=== PATIENT | female | born 1970 | race Caucasian/White ===

== ENCOUNTER → 2023-11-18 16:56 | Outpatient (REF) | payer BC, SELFPAY | LOC: HWRAD 16:56 | PROVIDERS: ATTENDING PHYSICIAN Nurse Practitioner Family | DX: J06.9 Acute upper respiratory infection, unspecified (principal) | CPT/HCPCS: 71046 ==

== ENCOUNTER → 2024-02-07 15:40 | Outpatient (REF) | payer BC, SELFPAY | LOC: HWRCS 15:40 | PROVIDERS: ATTENDING PHYSICIAN Nurse Practitioner; FAMILY PHYSICIAN Internal Medicine | DX: I47.10 Supraventricular tachycardia, unspecified (principal); R00.2 Palpitations; I34.1 Nonrheumatic mitral (valve) prolapse | CPT/HCPCS: 93306 ==

== ENCOUNTER → 2024-09-28 16:18 | Outpatient (REF) | payer BC, SELFPAY | LOC: HWWDC 16:18 | PROVIDERS: ATTENDING PHYSICIAN Internal Medicine | DX: Z12.31 Encounter for screening mammogram for malignant neoplasm of breast (principal) | CPT/HCPCS: 77063; 77067 ==

== ENCOUNTER → 2024-10-07 09:39 | Outpatient (REF) | payer BC, SELFPAY | LOC: WDC 09:39 | PROVIDERS: ATTENDING PHYSICIAN Internal Medicine | DX: R92.8 Other abnormal and inconclusive findings on diagnostic imaging of breast (principal) | CPT/HCPCS: 76642 ==

== ENCOUNTER → 2024-11-24 08:50 | Outpatient (REF) | payer BC, SELFPAY | LOC: WDC 08:50 | PROVIDERS: ATTENDING PHYSICIAN Internal Medicine | DX: R92.2 Inconclusive mammogram (principal) | CPT/HCPCS: 76641 ==

== ENCOUNTER → 2025-03-10 08:09 | Outpatient (REF) | payer BC, SELFPAY | LOC: RCS 08:09 | PROVIDERS: ATTENDING PHYSICIAN Internal Medicine Cardiovascular Disease; FAMILY PHYSICIAN Internal Medicine | DX: I47.10 Supraventricular tachycardia, unspecified (principal); R00.2 Palpitations; I34.1 Nonrheumatic mitral (valve) prolapse | CPT/HCPCS: 93306 ==

== ENCOUNTER → 2025-04-19 08:14 | Outpatient (REF) | payer BC, SELFPAY | LOC: RCS 08:14 | PROVIDERS: ATTENDING PHYSICIAN Internal Medicine Cardiovascular Disease; FAMILY PHYSICIAN Internal Medicine | DX: I34.1 Nonrheumatic mitral (valve) prolapse (principal); I34.0 Nonrheumatic mitral (valve) insufficiency | CPT/HCPCS: 93017; 93350 ==

== ENCOUNTER 2025-05-10 06:51 | Day surgery (SDC) | payer BC, SELFPAY ==
[2025-05-10 09:14] LABS: Hematocrit 31.5 % (37.0-47.0); Hemoglobin 10.5 g/dL (12.0-16.0); Mean Corp Hgb Conc. 33.3 g/dL (33.0-37.0); Mean Corpuscular Volume 81.2 fL (81.0-99.0); Nucleated Red Blood Cells % 0 %; Platelet Count 226 10^3/uL (130-400); Red Cell Dist. Width 15.0 % (11.5-14.5)
[2025-05-10 09:35] LABS: Albumin 3.6 g/dl (3.5-5.0); Blood Urea Nitrogen 16 mg/dl (7-17); Calcium 8.9 mg/dl (8.4-10.2); Carbon Dioxide 27 mmol/L (22-30); Chloride 110 mmol/L (98-107); Glucose 85 mg/dl (70-99); Potassium 4.4 mmol/L (3.5-5.1); Sodium 140 mmol/L (135-145); eGFR > 60.00
== END 2025-05-10 09:21 | disposition home or self-care (01) ==
LOC: CATH 06:51
PROVIDERS: ATTENDING PHYSICIAN Internal Medicine Cardiovascular Disease; FAMILY PHYSICIAN Internal Medicine
DX: I08.1 Rheumatic disorders of both mitral and tricuspid valves (principal); I47.10 Supraventricular tachycardia, unspecified; R00.2 Palpitations; R53.83 Other fatigue; E78.5 Hyperlipidemia, unspecified; Z87.891 Personal history of nicotine dependence; Z79.85 Long-term (current) use of injectable non-insulin antidiabetic drugs
CPT/HCPCS: 93312; 93320; 93325; 80069; 85025; 93005

== ENCOUNTER → 2025-05-14 07:52 | Outpatient (REF) | payer BC, SELFPAY | LOC: WDC 07:52 | PROVIDERS: ATTENDING PHYSICIAN Internal Medicine | DX: R92.8 Other abnormal and inconclusive findings on diagnostic imaging of breast (principal) | CPT/HCPCS: 76642 ==

== ENCOUNTER 2025-05-28 06:19 | Day surgery (SDC) | payer BC, SELFPAY ==
[2025-05-28] VITALS (14 sets, daily range): BP systolic 91–116; BP diastolic 48–65; BMI 25.0
--- NOTE | 2025-05-28 09:04 | ITS.CL.PN ---
Financial Services Assistant - Procedure Note
Procedure
Procedure Note:
CARDIAC CATHETERIZATION REPORT
Date of Procedure: 05/28/2025
Referring: Dr. Carmelo Sanchez MD
Indication: preoperative assessment prior to planned mitral valve surgery
PROCEDURE(S)
1. left heart catheterization
2. coronary angiography
ACCESS: 5F right radial artery (closure: radial band)
CATHETERS
1. 5F JR4
2. 5F JL3.5
MODERATE SEDATION: 25 minutes of moderate sedation was utilized. An independent veterinary medical officer was present to assist with and help manage the patient's level of consciousness and physiologic status.
HEMODYNAMIC DATA
LV 94/7 (EDP 16) mmHg
AO 96/65 (mean 76) mmHg
CORONARY ANGIOGRAPHY
Dominance: Right
LM: Large, normal
LAD: Large vessel giving rise to a moderate caliber D1/ramus and moderate caliber D2 before wrapping around the apex. There is no coronary artery disease.
LCx: Large vessel giving rise to a small OM1 and large branching OM2. There is no coronary artery disease.
RCA: Large vessel with an anterior takeoff giving rise to a moderate caliber RPDA. There is no coronary artery disease.
RADIATION: dose 99.9 mGy; DAP 7.83 Gy*cm2; fluoroscopy time 3.5 min
CONCLUSIONS
1. Mildly elevated LV filling pressure
2. No coronary artery disease
RECOMMENDATIONS
1. Primary prevention of CAD
2. Proceed with planned mitral valve surgery
Copy to: Dr. Carmelo Sanchez MD
Signed: Reji Nazario MD, PhD
== END 2025-05-28 11:30 | disposition home or self-care (01) ==
LOC: CATH 06:19
PROVIDERS: ATTENDING PHYSICIAN Student in an Organized Health Care Education/Training Program; FAMILY PHYSICIAN Internal Medicine; OTHER PHYSICIAN Internal Medicine Cardiovascular Disease
DX: I34.0 Nonrheumatic mitral (valve) insufficiency (principal); I34.1 Nonrheumatic mitral (valve) prolapse; Z01.818 Encounter for other preprocedural examination; Z79.85 Long-term (current) use of injectable non-insulin antidiabetic drugs; Z79.899 Other long term (current) drug therapy
CPT/HCPCS: 99152; 99153; 93458; C1894; Q9967

== ENCOUNTER → 2025-06-14 06:56 | Outpatient (REF) | payer BC, SELFPAY | LOC: RAD 06:56 | PROVIDERS: ATTENDING PHYSICIAN Thoracic Surgery (Cardiothoracic Vascular Surgery); FAMILY PHYSICIAN Internal Medicine | DX: I34.0 Nonrheumatic mitral (valve) insufficiency (principal) | CPT/HCPCS: 71275; 74174; Q9967 ==

== ENCOUNTER → 2025-06-24 17:15 | Outpatient (REF) | payer BC, SELFPAY | LOC: RAD 17:15 | PROVIDERS: ATTENDING PHYSICIAN Internal Medicine | DX: N28.1 Cyst of kidney, acquired (principal) | CPT/HCPCS: 76775 ==

== ENCOUNTER → 2025-08-03 08:22 | Outpatient (REF) | payer BC, SELFPAY | LOC: RCS 08:22 | PROVIDERS: ATTENDING PHYSICIAN Thoracic Surgery (Cardiothoracic Vascular Surgery); FAMILY PHYSICIAN Internal Medicine | DX: I34.0 Nonrheumatic mitral (valve) insufficiency (principal) | CPT/HCPCS: 93306 ==

== ENCOUNTER 2025-08-31 04:53 | Inpatient (IN) | payer BC, SELFPAY ==
[2025-08-17 08:32] VITALS: BMI 25.7
[2025-08-17 09:23] LABS: Hematocrit 37.6 % (37.0-47.0); Hemoglobin 12.6 g/dL (12.0-16.0); Mean Corp Hgb Conc. 33.5 g/dL (33.0-37.0); Mean Corpuscular Volume 81.2 fL (81.0-99.0); Nucleated Red Blood Cells % 0 %; Platelet Count 267 10^3/uL (130-400); Red Cell Dist. Width 15.0 % (11.5-14.5)
[2025-08-17 09:36] LABS: INR 1.03; PT 13.8 Sec (11.4-14.6)
[2025-08-17 09:50] LABS: ALT (SGPT) 35 U/L (0-35); AST (SGOT) 33 U/L (14-36); Albumin 4.3 g/dl (3.5-5.0); Alkaline Phosphatase 51 U/L (38-126); Blood Urea Nitrogen 17 mg/dl (7-17); Calcium 9.2 mg/dl (8.4-10.2); Carbon Dioxide 28 mmol/L (22-30); Chloride 105 mmol/L (98-107); Estimated Creatinine Clearance 58 ml/min; Glucose 85 mg/dl (70-99); Potassium 4.5 mmol/L (3.5-5.1); Sodium 137 mmol/L (135-145); Total Protein 6.8 g/dl (6.3-8.2); eGFR > 60.00
[2025-08-17 10:01] LABS: Urine Character Clear (Clear)
--- NOTE | 2025-08-17 10:13 | CM ---
Met with and Mrs. Henson in [facility]. She states prior to admission she resides with her spouse in a two story home with four steps to enter. She states she has a full flight of steps to get to bedroom/full bathroom. She states she has a powder
room on the first floor. She states prior to admission she was independent with ambulation and adls. She states she does not have any DME in the home. She states she has a prescription plan. Her spouse states he will be home to assist in her care
if needed. The discharge plan is to return home with his spouse and a home visit by the Transitional Care Nurse when medically stable.
We reviewed pre-op and post-op routines. We reviewed the shower instructions. She has the soap and written instructions. She already has the Cardiothoracic Surgery Educational Booklet. We also reviewed restrictions including driving and lifting
restrictions. We discussed a home visit by the Transitional Care Nurse. She is agreeable to a home visit. The plan is to for Mitral Valve Repair on Sunday, August 31, 2025.
[2025-08-17 10:44] LABS: Urine Red Blood Cell 0-2 /HPF (0-2); Urine Squamous Cell 0-2 /LPF (Few); Urine White Cell 0-2 /HPF (0-5)
[2025-08-17 11:02] LABS: Glycohemoglobin (HgbA1c) 4.8 % (4.0-5.9)
[2025-08-31 05:00] VITALS: BP 109/61
[2025-08-31 05:01] VITALS: BP 107/59
[2025-08-31 05:03] VITALS: BMI 24.9
[2025-08-31] MEDS: LOPRESSOR 25 MG PO (05:10)
[2025-08-31] MEDS: MAGNESIUM OXIDE 400 MG PO (05:10)
[2025-08-31] MEDS: PROTONIX 40 MG PO (05:10)
[2025-08-31] MEDS: BACTROBAN 2% OINTMENT 1 APPLIC NASAL ×2 (05:10→19:42)
--- NOTE | 2025-08-31 05:30 | PTCARENOTE ---
pt admitted into room 2265. VS and weight obtained. pt confirms 2 showers @ home and NPO since midnight. admission questions and med rec completed. clip prep and CHG cloth bath done. pre-op meds given.
--- NOTE | 2025-08-31 06:26 | W.CVOR.SURPR ---
CVOR Surgeon Immed Pre Op
-
I have examined this patient prior to performance of the scheduled procedure.
The patient's condition is unchanged from the time of the dictated/written History and
Physical and the patient is able to undergo the scheduled procedure.
MVrepair +/- LAAE
[2025-08-31 07:23] LABS: Urine Character Clear (Clear)
[2025-08-31 07:53] LABS: ACT+ - POC 115 Seconds (82-134)
[2025-08-31 08:37] LABS: ACT+ - POC 662 Seconds (82-134)
[2025-08-31 09:04] LABS: ACT+ - POC 728 Seconds (82-134)
[2025-08-31 09:18] LABS: B.E. - POC 2.0 mmol/L; Glucose - POC 120 mg/dl (70-99); HCO3 - POC 25 mmol/L (21-28); Hematocrit - POC 28 % PCV (37-47); Hemodilution- POC Yes; Hemoglobin Calculated - POC 9.5; Ionized Calcium - POC 0.93 mmol/L (1.15-1.33); Lactate - POC 0.53 mmol/L (0.36-0.75); O2 Saturation %Calculated-POC 100.0 % (94-98); PCO2 - POC 32 mmHg (35-48); PO2 - POC 427 mmHg (83-108); Potassium - POC 5.4 mmol/L (3.5-5.1); Sodium - POC 138 mmol/L (136-145); Specimen Type - POC Arterial; pH - POC 7.50 (7.35-7.45)
[2025-08-31 09:28] LABS: ACT+ - POC 533 Seconds (82-134)
--- NOTE | 2025-08-31 09:51 | CM ---
Chart reviewed. Patient is in the OR today. Patient is independent of ADLS, lives with her in a 2 STH, 4 JODIE, 0 DME. Plan is for the patient to return home with CT Transitional RN. CM to follow
[2025-08-31 09:53] LABS: B.E. - POC 1.8 mmol/L; Glucose - POC 158 mg/dl (70-99); HCO3 - POC 27 mmol/L (21-28); Hematocrit - POC 28 % PCV (37-47); Hemodilution- POC Yes; Hemoglobin Calculated - POC 9.5; Ionized Calcium - POC 1.08 mmol/L (1.15-1.33); Lactate - POC 0.66 mmol/L (0.36-0.75); O2 Saturation %Calculated-POC 99.9 % (94-98); PCO2 - POC 45 mmHg (35-48); PO2 - POC 276 mmHg (83-108); Potassium - POC 4.7 mmol/L (3.5-5.1); Sodium - POC 140 mmol/L (136-145); Specimen Type - POC Arterial; pH - POC 7.39 (7.35-7.45)
[2025-08-31 10:12] LABS: ACT+ - POC 540 Seconds (82-134)
[2025-08-31] MEDS: ANCEF 10 IV ×2 (10:15→13:46)
[2025-08-31 10:26] LABS: B.E. - POC 1.3 mmol/L; Glucose - POC 158 mg/dl (70-99); HCO3 - POC 26 mmol/L (21-28); Hematocrit - POC 29 % PCV (37-47); Hemodilution- POC Yes; Hemoglobin Calculated - POC 9.9; Ionized Calcium - POC 1.11 mmol/L (1.15-1.33); Lactate - POC 0.65 mmol/L (0.36-0.75); O2 Saturation %Calculated-POC 99.8 % (94-98); PCO2 - POC 43 mmHg (35-48); PO2 - POC 247 mmHg (83-108); Potassium - POC 4.6 mmol/L (3.5-5.1); Sodium - POC 141 mmol/L (136-145); Specimen Type - POC Arterial; pH - POC 7.40 (7.35-7.45)
[2025-08-31 10:37] LABS: ACT+ - POC 535 Seconds (82-134)
[2025-08-31 10:59] LABS: B.E. - POC 0.1 mmol/L; Glucose - POC 129 mg/dl (70-99); HCO3 - POC 25 mmol/L (21-28); Hematocrit - POC 30 % PCV (37-47); Hemodilution- POC Yes; Hemoglobin Calculated - POC 10.2; Ionized Calcium - POC 1.32 mmol/L (1.15-1.33); Lactate - POC 1.19 mmol/L (0.36-0.75); O2 Saturation %Calculated-POC 99.9 % (94-98); PCO2 - POC 40 mmHg (35-48); PO2 - POC 287 mmHg (83-108); Potassium - POC 4.8 mmol/L (3.5-5.1); Sodium - POC 139 mmol/L (136-145); Specimen Type - POC Arterial; pH - POC 7.40 (7.35-7.45)
[2025-08-31 11:09] LABS: ACT+ - POC 462 Seconds (82-134)
[2025-08-31 11:31] LABS: ACT+ - POC 115 Seconds (82-134)
--- NOTE | 2025-08-31 11:31 | CON.INTV ---
Consultation
Consultation Request
Date/Time Consultation Requested: 08/31/25
Date/Time Consultation Performed: 08/31/25
Performing Provider: Brittaney
Reason for Consultation: CVICU
Medical History
-
History of Present Illness:
55-year-old female with prior history of hypertension, hyperlipidemia, mitral regurgitation presenting for elective valve repair. Underwent mitral valve repair 08/31/25, tolerated well and postoperatively transferred to CVICU management
Past Medical History
Past Medical History: Other (see list below)
Social History
Tobacco: Non-smoker
Alcohol: None
Drug: None
Allergies / Home Medications
Allergies
Allergy/AdvReac Type Severity Reaction Status Date / Time
acetaminophen (From Percocet) Allergy Rash Verified 08/12/25 14:56
amoxicillin Allergy Rash Verified 08/12/25 14:56
erythromycin base Allergy Rash Verified 08/12/25 14:56
oxycodone (From Percocet) Allergy Rash Verified 08/12/25 14:56
Home Medications
�Medication �Instructions �Recorded �Confirmed �Last Taken �Type
escitalopram oxalate 10 mg tablet 10 mg PO HS Mental Health/Anxiety 05/10/25 08/31/25 08/30/25 19:00 History
metoprolol succinate 25 mg 25 mg PO HS Blood Pressure 05/10/25 08/31/25 08/30/25 19:00 History
tablet,extended release 24 hr
rosuvastatin 20 mg tablet 20 mg PO HS High Cholesterol 05/10/25 08/31/25 08/30/25 19:00 History
tirzepatide (weight loss) 7.5 7.5 mg SC QWEEK weight control 05/10/25 08/31/25 08/15/25 History
mg/0.5 mL subcutaneous pen
injector (Zepbound)
multivitamin 1 tab PO DAILY Supplement 05/28/25 08/31/25 08/23/25 History
Review of Systems
-
History Source: Patient
All other systems: Negative unless noted
Vitals / Labs / Diagnostic Testing
Vital Signs
Temp Pulse Resp BP Pulse Ox
97.5 F 70 18 109/61 98
08/31/25 05:02 08/31/25 05:02 08/31/25 05:02 08/31/25 05:00 08/31/25 05:02
Diagnostic Testing:
Physical Exam
-
HEENT: Normocephalic, Anicteric and Moist Mucous Membranes
Cardiovascular: S1/S2 and Regular Rhythm
Respiratory: Non-Labored Respirations and Other (chest tube)
GI: Soft, Non Distended and Non Tender
Neurology: Awake, Alert, Oriented and No Motor Deficits
Skin: Warm, Dry and Good Color
General: Comfortable and Other (NAD)
Assessment
-
55-year-old female with prior history of hypertension, hyperlipidemia, mitral regurgitation presenting for elective valve repair. Underwent mitral valve repair 08/31/25, tolerated well and postoperatively transferred to CVICU .management
Severe MR s/p MV repair +/- LAAE 08/31/25
Postop anemia
Conditions present prior to admission
endometrial polyp-excision
benign tumor right hand-excision right hand lesion
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
rotator cuff tear/reconstruction-rotator cuff repair and shoulder reconstruction
knee dislocation-left knee reconstruction
herpes labialis
mitral valve prolapse, posterior leaflet ( november 2021)
Moderate mitral regurgitation (November 2021)
ECHO 2023- MVP, mod to severe MR
hyperlipidemia
left knee arthroscopy
shoulder arthroscopy right
removal of endometrial polyps ( benign)
Plan
S/p MVR POD #0
Titrate off pressors per protocol
ECHO reviewed with normal function
PA catheter readings reviewed
Management of chest tubes per primary service
Pain control
RASS goal of 0 to -1
Intubated for procedure, extubated on BIPAP now
ABG(s) reviewed--hypercarbia noted
CXR with no obvious opacities/infiltrates, low lung volumes, ETT in good position, lines/tubes in place
Maintain supplement oxygen as needed
No prior history of pulmonary disease
No prior PFTs for review
Can add nebulizers if needed
Aspiration precautions
Encouraged incentive spirometry, OOB/ambulation/early mobility
Advance diet as tolerated following extubation
GI prophylaxis if indicated for mechanical ventilation >48 hours
Monitor critical I/O's
Aranda/chest tube output
Hb/platelets postoperatively stable
Trend CBC for now
Can transfuse if indicated for Hb <7, plt <50 in surgical patients
DVT prophylaxis including SCDs
Insulin protocol initiated and ongoing
Transition to SQ/off as indicated per team
We will follow
Diagnostic Data
Chest X-Ray: 08/31/25- Postop cardiothoracic surgery. There is a tiny right apical pneumothorax.
CT Scan:
Echo: 08/03/25- 1. Normal biventricular size and function without regional wall motion abnormalities.
2. LVEF is 60-65% by volumetric assessment. Normal diastolic function.
3. Flail likely P2 segment of the posterior leaflet of the mitral valve resulting in severe anteriorly directed mitral regurgitation with Coanda effect.
4. Normal estimated PASP at 15 mmHg.
5. Compared to prior from March 10, 2025, findings are similar with severe mitral regurgitation.
PFT's:
Reports and relevant images were personally reviewed.
Critical Care time 50 mins -- The patient is admitted for acute critical illness for the treatment of vital organ failure and/or prevention of further life-threatening conditions. Total care includes time spent in review of history, physical exam,
medications, hemodynamic/ventilator parameters, laboratory data, imaging and discussion with house staff, pharmacy, respiratory therapy, skiing teacher, and nursing.
[2025-08-31 11:36] LABS: B.E. - POC -1.3 mmol/L; Glucose - POC 99 mg/dl (70-99); HCO3 - POC 23 mmol/L (21-28); Hematocrit - POC 30 % PCV (37-47); Hemodilution- POC No; Hemoglobin Calculated - POC 10.1; Ionized Calcium - POC 1.17 mmol/L (1.15-1.33); Lactate - POC < 0.30 mmol/L (0.36-0.75); O2 Saturation %Calculated-POC 100.0 % (94-98); PCO2 - POC 37 mmHg (35-48); PO2 - POC 414 mmHg (83-108); Potassium - POC 3.6 mmol/L (3.5-5.1); Sodium - POC 138 mmol/L (136-145); Specimen Type - POC Arterial; pH - POC 7.40 (7.35-7.45)
[2025-08-31 11:38] LABS: B.E. - POC -1.8 mmol/L; Glucose - POC 113 mg/dl (70-99); HCO3 - POC 23 mmol/L (21-28); Hematocrit - POC 26 % PCV (37-47); Hemodilution- POC Yes; Hemoglobin Calculated - POC 8.9; Ionized Calcium - POC 1.36 mmol/L (1.15-1.33); Lactate - POC 1.47 mmol/L (0.36-0.75); O2 Saturation %Calculated-POC 99.7 % (94-98); PCO2 - POC 39 mmHg (35-48); PO2 - POC 200 mmHg (83-108); Potassium - POC 3.8 mmol/L (3.5-5.1); Sodium - POC 138 mmol/L (136-145); Specimen Type - POC Arterial; pH - POC 7.38 (7.35-7.45)
--- NOTE | 2025-08-31 11:46 | W.PN.CT.SURG ---
CT Surgery Operative Note
-
CARDIAC SURGERY OPERATIVE REPORT
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
Postoperative Diagnosis: Same
Procedure(s) Performed:
1. Right mini thoracotomy with right femoral artery and vein cannulation under CALLY guidance
2. Radical mitral valve repair (5 sets of [place]-Tung cords with 2 to the anterior leaflet and 3 to the posterior leaflet, quadrangular resection with sliding plasty of the posterior leaflet at P2 along the medial aspect, free margin remodeling of P1
P2, band annuloplasty with a 36 mm band)
3. Placement temporary ventricular pacing wires
4. Trans esophageal echocardiography
5. Left atrial appendage ligation, 35mm device
Date of Surgery: 08/31/2025
Comorbidities:
1. 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
2. Severe mitral valve insufficiency, symptomatic
3. Dilated left ventricle both in systole and diastole
4. Multiple orthopedic issues
5. Hyperlipidemia
Attending Surgeon: Camrelo Sanchez MD, MS
Assistants: Ant Serrano PA-C (present and necessary for retraction, suctioning, exposure, suture management, wound closure, etc. under my direction)
Anesthesiology: Godwin Dorantes MD and Kelton Gutierrez CRNA
Scrub and Circulating RNs: Luna Buchanan, RN, Christel Novak, RN and Vince Mai RN
Unit Aid: Nikole Chatterjee CCP
Anesthesia: GETA
EBL: per perfusion records
Products: None
CPB Time: 150 minutes
Aortic Cross Clamp Time: 123 minutes
Indication(s) for Procedures: This is a 55-year-old female who was found to have progressive mitral valve insufficiency graded as severe and new development of symptoms. She is referred for mitral repair. Given her symptoms, appearance of her
mitral valve, and severe insufficiency she may class I indication for surgical intervention. Given her likely propensity for developing arrhythmias and her description of multiple PVCs, I offered to ligate her left atrial appendage at time of
surgery if it was visible.
Mitral Valve Description: Thickening of both the anterior and posterior leaflets, dilated mitral annulus, prolapsing of the P2 scallop with billowing more towards the medial aspect.
Implants:
1. 36 mm Sewell physio flex annuloplasty band, SN [id number]
2. 4 sets of CV 4 [place]-Tung cords
3. Multiple 5-0 Prolene sutures
4. 35 mm left atrial appendage clip, serial #[id number]
Specimen:
1. P2 scallop with cord
Findings: Her left ventricular ejection fraction preoperatively was 60% with no significant regional wall motion abnormalities. She did have dilated left ventricle dimensions in systole and diastole and severe mitral valve insufficiency with a
complex jet that had both an anterior as well as a central and posterior component. Following surgery EF remained the same at 60% and low but hyperdynamic. Her mitral valve was initially repaired with a 36 mm band annuloplasty secured from trigone
to trigone using a total of 11 nonpledgeted 2 Ethibond sutures secured with core knots. I initially placed 3 CV 4 [place]-Tung sutures to the posterior leaflet along each scallop with mostly concentrating towards the P2 scallop. The P2 scallop was
also resected and the quadrangular fashion airing towards the medial aspect and sliding underneath the P2 scallop towards the lateral aspect. The remnant P2 leaflet was then reapproximated and imbricated back onto P3 coming off cardiopulmonary
bypass the first time there was only a trace to mild degree of mitral valve insufficiency but there was clear DANII of the anterior leaflet and some of the cords. I felt that this was not suitable and elected to recross clamp giving an additional 500
cc of cardioplegia with that arrest at 150. I placed 2 additional CV 4 [place]-Tung from the posterior medial papillary muscle head to the A1 A2 and A2 A3 interface of the anterior leaflet. I then cut out one of the CV 4 [place]-Tung to the P2 scallop
along the anterior lateral papillary muscle head that I felt was too loose and then placed the new cord here and tightened it down so that the posterior leaflet was more vertical with a lower height testing of the valve revealed good coaptation
height and a more posterior coaptation margin. Coming off cardiopulmonary bypass the second time, there was no residual mitral valve insufficiency and the mean gradient was 3 across the valve once the patient was no longer hyperdynamic left atrial
appendage was verified to be free of any thrombus or debris preoperatively and clipped across the transverse sinus using a 35mm device which was later found to be totally occlusive flush to the base. She did not require any blood products, she was
not on any inotropic support, and she regained her sinus rhythm after a very short period of ventricular pacing. Ultimately there is no residual mitral valve deficiency and no systolic anterior motion of the leaflets after repair.
Description of Procedure: The patient was brought to the operating room and placed supine in the table with their right side bumped up and right arm down. Arterial and central access was performed by anesthesiology. The patient was prepped from chin
to toes in the typical sterile fashion. Trans esophageal evaluation of cardiac function and all valvular structures was conducted. Before commencing, a time out was performed by all members of the team. All were in agreement with the procedure and
laterality and I proceeded. A small right groin incision was made to expose the common femoral artery and vein. A 5-6 cm right lateral muscle sparing thoracotomy sweeping the pec major muscle cephalad at the serratus anterior was performed over the
4th intercostal space verified by visualization of the hilum. A total of 35,000 units of heparin was given. The common femoral artery and vein were cannulated under transesophageal guidance using open Seldinger technique. The arterial line was
verified to have an appropriate bounce and pressure correlating with testing. Once the ACT was above 400, retrograde autologous priming was done and we commenced cardiopulmonary bypass. Target core temperature was 34�C.
Carbon dioxide was used to flood the field. The course of the phrenic nerve was identified to prevent injury. The pericardium was opened and two stay sutures were placed to facilitate a ``pericardial table.�� The oblique sinus was developed followed
by the inter atrial groove. An antegrade root vent was inserted and secured with a pursestring suture. The pump flow and mean arterial pressure were lowered and an aortic cross clamp was applied to the ascending aorta. A total of 1.2L initial dose
of Antegrade cardioplegia was delivered. We had rapid electro myocardial quiescence at 300cc of cardioplegia. Once the heart was fully arrested he was emptied and the left atrial appendage was accessed via the transverse sinus and clipped flush the
base with a 35mm device.The ventricle was monitored for distension by echocardiogram during this time. The left atrium was incised and enlarged. A left atrial lift retractor was placed. The mitral valve was inspected. The mitral valve was repaired
as described above. The left atriotomy was closed with 3-0 prolene in a running fashion leaving a ventricular vent in place to de-air. After filling the heart, the vent was removed and the prolene was secured with a corknot. Unipolar ventricular
pacing wire was placed on the base of the right ventricle. The patient was placed into Trendelenburg position and pump flows were lowered. The clamp was slowly removed with the root vent turned on. De-airing maneuvers were performed. We started to
rewarm with a target of 36.5�C.
As the heart recovered, the mitral valve and ventricular function were assessed under transesophageal echocardiogram. I was not satisfied as there were some chordal DANII as well as some DANII of the anterior leaflet itself with trace to mild residual
mitral valve insufficiency during these times. I opted to recross clamp and to give 500 additional cc of antegrade cardioplegia with rapid arrest. I accessed the mitral valve through the same left atriotomy incision and then adjusted some of the
posterior leaflet cords as well as placed 2 additional anterior leaflet cords to help prevent the leaflet from going in towards the LVOT. The left atrium was then closed in the usual fashion with 3-0 Prolene after de-airing maneuvers. The head was
then lowered and the pump flow was also lowered and the cross-clamp was then removed again. Flows were then brought back up. While the heart was in recovering the second time, we inspected again there is no digital insufficiency or systolic
anterior motion here. Once de-airing was satisfactory the root vent was removed. Once weaning parameters were satisfactory, cardiopulmonary bypass flow was lowered until we were off cardiopulmonary bypass the mitral valve was inspected again. All
surgical sites were inspected for hemostasis and appeared appropriate. We briefly resumed cardiopulmonary bypass to remove the root vent and the pericardium was approximated with 2-0 ethibond sutures secured with corknots. The lines were clamped
and the arterial was relocated to the venous cannula to give back volume. A test dose of protamine was delivered and patient was monitored for any adverse reactions followed by complete protamine dosing. The femoral vessels were decannulated,
maintaining wire access, and repaired as indicated in case we needed emergent CPB. Once protamine was completed for a period of time, the wires were removed and the vessels finally tied down. One 19F Samuel drain remained in the pleural space and
threaded into the pericardium. There was an excellent palpable distal pulse to the [employer] cannulation site. Local analgesia was injected to the thoracotomy. The incision was closed in layers in a running fashion.
All instrument, sponge, and needle counts were confirmed to be correct x 2 at the end of the operation. The patient was transferred to the cardiac intensive care unit in critical but stable condition.
I, Dr. Carmelo Sanchez, was present, scrubbed for, and performed all critical elements of this procedure.
Carmelo Sanchez MD, MS
Cardiothoracic Surgeon
[facility]
This dictation was created using the [employer] dictation system. Please excuse any grammatical, typographical, or 'sound alike' errors
[2025-08-31 12:17] LABS: Glucose - Point of Care 108 mg/dl (70-99)
[2025-08-31 12:28] LABS: Hematocrit 31.7 % (37.0-47.0); Hemoglobin 10.6 g/dL (12.0-16.0); Platelet Count 196 10^3/uL (130-400)
[2025-08-31 12:30] LABS: B.E. -2.3 mmol/L; HCO3 24.9 mmol/L (21-28); O2 Saturation % 99.5 % (94-98); PCO2 53 mmHg (32-35); PO2 138 mmHg (83-108); Potassium 3.9 mMOL/L (3.5-5.1); Sodium 137 mMOL/L (136-145)
[2025-08-31] MEDS: KCL 50 IV (12:38)
[2025-08-31 12:39] LABS: INR 1.35; PT 16.8 Sec (11.4-14.6)
[2025-08-31 12:40] LABS: APTT 33.2 Sec (23.4-35.0)
[2025-08-31 12:50] VITALS: PULSE 2
[2025-08-31 12:50] LABS: Blood Urea Nitrogen 15 mg/dl (7-17); Estimated Creatinine Clearance 86 ml/min; Glucose 95 mg/dl (70-99); Magnesium 3.0 mg/dl (1.6-2.3)
--- NOTE | 2025-08-31 13:00 | PTCARENOTE ---
received pt from CVOR sedated but semi arousable. extubated with simple face mask and oral airway in place. NSR. V wire present but not pacing. HR 80s. pulses palpable. no edema. CTX1 to -20 wall suction. draining min red drainage. no air
leak/crepitus noted. Bowel sounds hypoactive. Aranda draining clear yellow urine. Multiple puncture sites to R side. approximated and MELQUIADES. R groin incision MELQUIADES. Usual lines. CXR, EKG done bedside. labs drawn and sent. bianca hugger applied. CI >2. Levo
and insulin infusing. updated at bedside. will continue to monitor.
[2025-08-31 13:12] VITALS: BP_SYST 104
[2025-08-31 13:17] LABS: Glucose - Point of Care 102 mg/dl (70-99)
[2025-08-31] MEDS: DILAUDID 0.5 MG IV ×2 (13:44→19:42)
[2025-08-31] MEDS: THERAGRAN PO (13:45)
[2025-08-31] MEDS: NSS 500 IV (13:46)
[2025-08-31] MEDS: NEURONTIN PO (13:46)
[2025-08-31 14:18] LABS: Glucose - Point of Care 97 mg/dl (70-99)
[2025-08-31] MEDS: TYLENOL 975 MG PO ×2 (14:18→22:52)
[2025-08-31 14:19] VITALS: BP_SYST 115
[2025-08-31 15:03] LABS: Glucose - Point of Care 98 mg/dl (70-99)
[2025-08-31 15:23] LABS: B.E. -1.8 mmol/L; HCO3 23.7 mmol/L (21-28); Hematocrit 29.6 % (37.0-47.0); Hemoglobin 10.1 g/dL (12.0-16.0); O2 Saturation % 99.3 % (94-98); PCO2 42 mmHg (32-35); PO2 160 mmHg (83-108); Platelet Count 195 10^3/uL (130-400)
[2025-08-31 15:26] LABS: Potassium 3.7 mMOL/L (3.5-5.1)
[2025-08-31] MEDS: NEURONTIN 100 MG PO ×2 (15:31→22:52)
[2025-08-31] MEDS: LOW STRENGTH ASPIRIN 81 MG PO (15:31)
[2025-08-31] MEDS: PACERONE 200 MG PO ×2 (15:32→22:52)
[2025-08-31 16:02] VITALS: BP_SYST 89
[2025-08-31 16:07] LABS: Glucose - Point of Care 100 mg/dl (70-99)
--- NOTE | 2025-08-31 16:16 | W.PN.CD ---
Today's Communication / Plan
-
routine post op care
Impression / Plan
-
55 year old woman with HTN, HLD, severe MR now POD0 s/p MV repair with Dr. Sanchez.
Tolerate surgery well - vavle repaired with no DANII, MG3, no products needed.
Seen an examined. Comfortable appearing. Awake and alert. Lungs clear. RRR. No TIFFANIE. Warm.
Sinus on tele. Mild hypotension with MAP 65 on norepi 4. Satting 100% on RA.
Plan:
# MR s/p MV repair
- doing well post operatively
- cont. norepi to treat post-op hypotension with goal MAP >65
- maintain cordis while on pressors
- metop once off pressors
- no need for diuresis currently
- chest tube management per CTS
- amio for Afib prevention per CTS
- encourage IS, OOB tomorrow
Physical Exam
Vital Signs/Labs
Vital Signs
Temp Pulse Resp BP Pulse Ox
36.2 C 86 10 108/64 99
08/31/25 16:00 08/31/25 16:00 08/31/25 15:45 08/31/25 15:32 08/31/25 16:00
08/30/25 08/31/25 09/01/25
06:59 06:59 06:59
Actual Weight 70 kg
08/31/25 15:05
08/31/25 12:17
PT 16.8 Sec (11.4-14.6) H 08/31/25 12:17
INR 1.35 08/31/25 12:17
APTT 33.2 Sec (23.4-35.0) 08/31/25 12:17
Magnesium 3.0 mg/dl (1.6-2.3) H 08/31/25 12:17
Physical Exam
Constitutional: Comfortable
Cardiovascular: Rhythm & rate is regular
Respiratory: Respiratory effort normal
Neuro/Psych: AO x 3
Data Reviewed
-
Date of Service: August 31, 2025
Medical Decision Making: Reviewed Test Results
Labs: Labs Reviewed by me
[2025-08-31] MEDS: ALBUMIN 5% 250 IV (17:33)
[2025-08-31] MEDS: ANCEF 5 IV (17:34)
[2025-08-31] MEDS: ZOFRAN 4 MG IV (17:47)
[2025-08-31 17:51] LABS: Glucose - Point of Care 108 mg/dl (70-99)
--- NOTE | 2025-08-31 18:45 | PTCARENOTE ---
98% 2Lnc. IS 1000. pain reported at acceptable level. VSS on 5mcg Levo. report given to night RN and will continue to monitor.
[2025-08-31] MEDS: SENOKOT 8.6 MG PO (19:42)
--- NOTE | 2025-08-31 20:07 | PTCARENOTE ---
received pt from previous rn. Pt AAOx4. NSR per tele monitor HR 80s. + pulses, PAP 20/10s CVP ~9. pox 100% on 2L NC. lungs clear diminished at bases. CTx1 set to -20 cm wall suction. no air leak/tidaling/crepitus noted. IS 750. coughing and deep
breathing encouraged. hypoactive bs. Aranda draining clear yellow urine. all surgical incisions intact. RIJ cordis w/ Argillite floated to 40. L radial a-line intact. PIV infusing insulin per glycemic protocol. plan of care discussed and questions
encouraged. call kramer within reach. see worklist for full nursing assessment and nursing interventions.
[2025-08-31 20:08] LABS: Glucose - Point of Care 82 mg/dl (70-99)
[2025-08-31 21:11] LABS: Glucose - Point of Care 126 mg/dl (70-99)
[2025-08-31] MEDS: COMPAZINE 10 MG IV (21:15)
[2025-08-31 22:09] LABS: Glucose - Point of Care 120 mg/dl (70-99)
[2025-08-31] MEDS: LEXAPRO 10 MG PO (22:52)
[2025-08-31] MEDS: CRESTOR 20 MG PO (22:52)
[2025-08-31 23:00] LABS: Glucose - Point of Care 115 mg/dl (70-99)
[2025-08-31 23:55] LABS: Glucose - Point of Care 98 mg/dl (70-99)
[2025-09-01] VITALS (8 sets, daily range): BP systolic 75–110; BP diastolic 50–62; BMI 25.8
--- NOTE | 2025-09-01 00:09 | PTCARENOTE ---
pt reassessed. NSR per tele monitor HR 80s. pox 100% on 2L NC. pt c/o nausea. see MAR. assessment unchanged otherwise.
[2025-09-01] MEDS: ULTRAM 50 MG PO ×2 (01:19→18:51)
[2025-09-01 01:22] LABS: Glucose - Point of Care 117 mg/dl (70-99)
[2025-09-01] MEDS: ANCEF 5 IV ×2 (01:59→10:59)
[2025-09-01] MEDS: LEVOPHED 250 IV (02:07)
[2025-09-01] MEDS: ALBUMIN 5% 250 IV ×2 (02:22→15:51)
[2025-09-01 03:16] LABS: Glucose - Point of Care 112 mg/dl (70-99)
[2025-09-01 03:26] LABS: Hematocrit 26.6 % (37.0-47.0); Hemoglobin 8.8 g/dL (12.0-16.0); Mean Corp Hgb Conc. 33.1 g/dL (33.0-37.0); Mean Corpuscular Volume 79.4 fL (81.0-99.0); Platelet Count 193 10^3/uL (130-400); Red Cell Dist. Width 15.1 % (11.5-14.5)
[2025-09-01] MEDS: CALCIUM GLUCONATE 100 IV (04:03)
[2025-09-01 04:11] LABS: Blood Urea Nitrogen 16 mg/dl (7-17); Calcium 8.6 mg/dl (8.4-10.2); Carbon Dioxide 26 mmol/L (22-30); Chloride 106 mmol/L (98-107); Estimated Creatinine Clearance 86 ml/min; Glucose 102 mg/dl (70-99); Magnesium 2.1 mg/dl (1.6-2.3); Potassium 4.2 mmol/L (3.5-5.1); Sodium 135 mmol/L (135-145); eGFR > 60.00
[2025-09-01 05:18] LABS: Glucose - Point of Care 105 mg/dl (70-99)
[2025-09-01] MEDS: TYLENOL 975 MG PO ×3 (06:15→21:10)
--- NOTE | 2025-09-01 06:25 | W.PN.CT ---
Today's Communication / Plan
-
-pod #1
-no significant issues overnight, no complaints, comfortable. Hemodynamically stable
-hypovolemia postop - got 1500 ml of LR and 500 Albumin
-sbp 90-[address] Sanchez. Liberate sbp today 90-130
-tiny R PTX on postop cxr- stable, follow
-CI 2.68, CO 4.79. Drips: Levo 3, Insulin
-med CT output 5/60 in 12/24 hrs, no air leak, on -20 sxn
-hold BB while on Levo
-d/c swan
-maintain pw
-encourage IS, OOB
Assessment / Plan
-
- Severe symptomatic MR - s/p Right mini thoracotomy; Radical mitral valve repair; Left atrial appendage ligation, 35mm clip by Dr. Sanchez on 08/31/25, pod #1
- Intraop CALLY: LVEF preop was 60% with no significant regional wall motion abnormalities. She did have dilated left ventricle dimensions in systole and diastole and severe mitral valve insufficiency with a complex jet that had both an anterior as
well as a central and posterior component. Following surgery, EF remained the same at 60% and low but hyperdynamic. Coming off cardiopulmonary bypass the second time, there was no residual mitral valve insufficiency and the mean gradient was 3
across the valve once the patient was no longer hyperdynamic. Ultimately, there was no residual mitral valve deficiency and no systolic anterior motion of the leaflets after repair. Left atrial appendage was verified to be free of any thrombus or
debris preoperatively and clipped across the transverse sinus using a 35mm device which was later found to be totally occlusive flush to the base.
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
- Severe mitral valve insufficiency, symptomatic
- Dilated left ventricle both in systole and diastole
- Multiple orthopedic issues
- Hyperlipidemia
- R reanal cyst
- Rotator cuff repair 14 yrs ago
- Endometrial polyp excision
- Benign tumor excision on R and L hands
- Hx depression
- Hx herpes
- Former smoker
- Acute postop blood loss anemia - stable, no active bleed
- Acute postop atelectasis
- Acute postop small R PTX
- Acute postop hypovolemia with subsequent hypervolemia
- Suspected acute postop pericarditis/+ rub
Discussed patient care with: Nursing and Care Team
Subjective
-
Date of Service: August 31, 2025
Objective Data
-
Lab Results
08/31/25 15:05
08/31/25 12:17
PT 16.8 Sec (11.4-14.6) H 08/31/25 12:17
INR 1.35 08/31/25 12:17
APTT 33.2 Sec (23.4-35.0) 08/31/25 12:17
Vital Signs
Vital Signs
Temp Pulse Resp BP Pulse Ox
98.2 F 93 19 108/64 99
08/31/25 23:00 08/31/25 23:00 08/31/25 23:00 08/31/25 15:32 08/31/25 23:00
CT Intake/Output/Weight
08/31/25 08/31/25 09/01/25
06:59 18:59 06:59
Intake Total 1803.7 / 2060.5 256.8 / 2060.5
Output Total 655 / 921 266 / 921
Balance 1148.7 / 1139.5 -9.2 / 1139.5
SaO2: 99
Physical Exam
-
General: AOx3
Cardiovascular: Regular rate & rhythm, No Murmurs and No Rub
Respiratory: Decreased Breath Sounds
Sternum: Stable
Incision: Clean, Dry and Dressing Intact
Extremities: No Edema (2+ DPs b/l)
Abdomen: soft, nontender, nondistended, + decreased bowel sounds
Data Reviewed
-
Lab Results: Results Reviewed
Medications: Active Meds Reviewed
Chest X-Ray: Report Reviewed and Image Reviewed
ECG: Report Reviewed and Image Reviewed
[2025-09-01] MEDS: ULTRAM 25 MG PO ×2 (06:35→13:58)
[2025-09-01] MEDS: FLEXBUMIN 50 IV (07:24)
--- NOTE | 2025-09-01 07:34 | W.PN.INTV ---
Today's Communication / Plan
Recommendations
Doing well, stable on RA, not on pressors
Chest tube and PAC discontinued
Encouraged OOB, PT, IS
Off drips
Transfer to [facility] per team, we will sign off upon transfer
Assessment
-
55-year-old female with prior history of hypertension, hyperlipidemia, mitral regurgitation presenting for elective valve repair. Underwent mitral valve repair 08/31/25, tolerated well and postoperatively transferred to CVICU .management
Severe MR s/p MV repair +/- LAAE 08/31/25
Postop anemia
Conditions present prior to admission
endometrial polyp-excision
benign tumor right hand-excision right hand lesion
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
rotator cuff tear/reconstruction-rotator cuff repair and shoulder reconstruction
knee dislocation-left knee reconstruction
herpes labialis
mitral valve prolapse, posterior leaflet ( november 2021)
Moderate mitral regurgitation (November 2021)
ECHO 2023- MVP, mod to severe MR
hyperlipidemia
left knee arthroscopy
shoulder arthroscopy right
removal of endometrial polyps ( benign)
Plan
S/p MVR POD #1
Titrated off pressors per protocol
ECHO reviewed with normal function
PA catheter discontinued
Management of chest tubes per primary service-discontinued
Pain control
RASS goal of 0 to -1
Intubated for procedure, extubated and doing well
ABG(s) reviewed--hypercarbia noted 7.--resolved
CXR with stable postop changes
Stable on RA, off supplement oxygen
No prior history of pulmonary disease
No prior PFTs for review
Can add nebulizers if needed
Aspiration precautions
Encouraged incentive spirometry, OOB/ambulation/early mobility
Advance diet as tolerated following extubation
GI prophylaxis if indicated for mechanical ventilation >48 hours
Monitor critical I/O's
Aranda/chest tube output--discontinued
Hb/platelets postoperatively stable
Trend CBC for now
Can transfuse if indicated for Hb <7, plt <50 in surgical patients
DVT prophylaxis including SCDs
Insulin protocol discontinued
Diagnostic Data
Chest X-Ray: 08/31/25- Postop cardiothoracic surgery. There is a tiny right apical pneumothorax.
CT Scan:
Echo: 08/03/25- 1. Normal biventricular size and function without regional wall motion abnormalities.
2. LVEF is 60-65% by volumetric assessment. Normal diastolic function.
3. Flail likely P2 segment of the posterior leaflet of the mitral valve resulting in severe anteriorly directed mitral regurgitation with Coanda effect.
4. Normal estimated PASP at 15 mmHg.
5. Compared to prior from March 10, 2025, findings are similar with severe mitral regurgitation.
PFT's:
Reports and relevant images were personally reviewed.
Critical Care time 31 mins -- The patient is admitted for acute critical illness for the treatment of vital organ failure and/or prevention of further life-threatening conditions. Total care includes time spent in review of history, physical exam,
medications, hemodynamic/ventilator parameters, laboratory data, imaging and discussion with house staff, pharmacy, respiratory therapy, oxygen equipment technician, and nursing.
Subjective Dataa
Subjective Data
Date of Service:
Date of Service: September 01, 2025
Chief Complaint: [place] Follow Up
Subjective:
Doing well, no complaints
Stable on RA, not on pressors
Objective Data
Data Reviewed
Vital Signs / I&O / Oxygen:
Vital Signs
Temp Pulse Resp BP Pulse Ox
98.7 F 89 16 85/56 100
09/01/25 06:00 09/01/25 07:15 09/01/25 07:15 09/01/25 06:18 09/01/25 07:15
Intake and Output
08/31/25 09/01/25 09/02/25
06:59 06:59 06:59
Intake Total 2696.1 / 2724.6 28.5 / 28.5
Output Total 1035 / 1065 30 / 30
Balance 1661.1 / 1659.6 -1.5 / -1.5
SaO2 100
Nasal Cannula flow liters per 1
minute
Physical Exam
General: Comfortable and Other (NAD)
HEENT: Normocephalic, Anicteric and Moist Mucous Membranes
Cardiovascular: S1-S2 and Regular Rhythm
Respiratory: Clear and Non-Labored Respirations
GI: Soft, Non Distended and Non Tender
Neurology: Awake, Alert, Oriented and No Motor Deficits
Skin: Warm, Dry and Good Color
Labs/Micro/Reports
Lab Data
09/01/25 03:11
09/01/25 03:11
Laboratory Results
08/31/25 08/31/25
12:17 15:05
PT 16.8 H
INR 1.35
APTT 33.2
pH 7.28 L 7.36
pCO2 53 H 42 H
pO2 138 H 160 H
HCO3 24.9 23.7
O2 Delivery Level
[2025-09-01 07:45] LABS: Glucose - Point of Care 102 mg/dl (70-99)
--- NOTE | 2025-09-01 08:00 | PTCARENOTE ---
resumed care of pt from previous RN. AAOx3. NSR 1 AV block HR 90s. + pulses +1 lower extrem edema. 98% on RA. lungsdiminished at bases. CTx1 to -20 cm wall suction. no air leak/tidaling/crepitus noted. IS 500-750. + bs. Aranda draining clear yellow
urine. all surgical incisions c/d/i. RIJ cordis and L radial a-line intact. PIV infusing insulin per glycemic protocol. will continue to monitor.
[2025-09-01] MEDS: BACTROBAN 2% OINTMENT 1 APPLIC NASAL ×2 (08:36→19:15)
[2025-09-01] MEDS: LIDOCAINE 4% PATCH 1 PATCH TOPICAL (08:42)
[2025-09-01] MEDS: NEURONTIN 100 MG PO ×3 (08:45→21:04)
[2025-09-01] MEDS: PROTONIX 40 MG PO (08:45)
[2025-09-01] MEDS: THERAGRAN 1 TABLET PO (08:45)
[2025-09-01] MEDS: LOW STRENGTH ASPIRIN 81 MG PO (08:45)
[2025-09-01] MEDS: PACERONE 200 MG PO ×3 (08:46→21:04)
[2025-09-01] MEDS: MAGNESIUM OXIDE 400 MG PO ×2 (08:46→18:51)
[2025-09-01] MEDS: NSS IV (08:47)
[2025-09-01] MEDS: SENOKOT 8.6 MG PO ×2 (08:47→18:51)
[2025-09-01 10:00] LABS: Glucose - Point of Care 119 mg/dl (70-99)
--- NOTE | 2025-09-01 11:26 | CM ---
Chart reviewed. Patient is OOB sitting in the chair, at bedside. Patient is independent of ADLS, lives with her in a 2 STH, 4STE, 0 DME. Plan is for the patient to return home with CT Transitional RN. CM to follow
[2025-09-01 11:45] LABS: Glucose - Point of Care 113 mg/dl (70-99)
--- NOTE | 2025-09-01 12:23 | PTCARENOTE ---
d/c chest tube without incident. Remains on [email or web address]. starting midodrine. will continue to monitor.
[2025-09-01 12:36] LABS: B.E. - POC -2.3 mmol/L; Glucose - POC 122 mg/dl (70-99); HCO3 - POC 24 mmol/L (21-28); Hematocrit - POC 25 % PCV (37-47); Hemodilution- POC Yes; Hemoglobin Calculated - POC 8.5; Ionized Calcium - POC > 4.00 mmol/L (1.15-1.33); Lactate - POC 1.36 mmol/L (0.36-0.75); O2 Saturation %Calculated-POC 99.9 % (94-98); PCO2 - POC 50 mmHg (35-48); PO2 - POC 364 mmHg (83-108); Potassium - POC 4.6 mmol/L (3.5-5.1); Sodium - POC 138 mmol/L (136-145); Specimen Type - POC Arterial; pH - POC 7.30 (7.35-7.45)
[2025-09-01] MEDS: FERRLECIT 110 MG IV (13:58)
--- NOTE | 2025-09-01 14:27 | W.PN.CD ---
Today's Communication / Plan
-
Continue routine post operative management.
Incentive spirometry.
Ambulation.
Pain/chest tube management per CT surgery in light of right apical PTX.
Not ready for diuresis.
Impression / Plan
-
Impression/Plan: 55 year old woman with HTN, HLD, severe degenerative mitral valve regurgitation admitted for elective MV repair with Dr. Sanchez.
#Severe, degenerative mitral valve regurgitation
-Chronic, progressive symptoms.
-S/P #36 [place] Physioflex band annuloplasty (SN [id number]) with 2 sets of [place] cords to anterior leaflet, quadrangular resection of P2 with 3 [place] cords to posterior leaflet with Dr. Sanchez (08/31/2025).
-Continue post operative amiodarone for AF prophylaxis. Patient is s/p LAAE with #[address] Sanchez (08/31/2025).
-Relative hypovolemia, patient responded to albumin/volume infusion and midodrine.
-Routine post operative management.
-Wean pressors/inotropes for MAP > 65 mmHg, CI > 1.8 L/min/m2.
-Pain/chest tube management per CT surgery. Tiny apical right PTX.
-Incentive spirometry.
-Ambulate when appropriate.
#HTN
-Chronic, currently relatively hypotensive.
-Metoprolol on hold.
#HLD
-Chronic, stable.
-Continue rosuvastatin 20 mg daily.
Subjective/Interval History:
Surgery yesterday.
Weight up 2.6 kg from baseline.
CI = 2.68 as of 04:06.
SaO2 = 97% on RA.
CXR shows small right apical PTX.
Hbg dropped from 10.1 to 8.8.
DATA:
CALLY, 05/10/2025:
SUMMARY
1. Normal left ventricular systolic function.
2. Mitral valve with posterior leaflet prolapse and severe eccentric mitral regurgitation.
3. Compared with the previous transthoracic echo findings are similar.
Cardiac Catheterization, 05/28/2025:
CORONARY ANGIOGRAPHY
Dominance: Right
LM: Large, normal
LAD: Large vessel giving rise to a moderate caliber D1/ramus and moderate caliber D2 before wrapping around the apex. There is no coronary artery disease.
LCx: Large vessel giving rise to a small OM1 and large branching OM2. There is no coronary artery disease.
RCA: Large vessel with an anterior takeoff giving rise to a moderate caliber RPDA. There is no coronary artery disease.
CONCLUSIONS
1. Mildly elevated LV filling pressure
2. No coronary artery disease
TTE, 08/03/2025:
SUMMARY
1. Normal biventricular size and function without regional wall motion abnormalities.
2. LVEF is 60-65% by volumetric assessment. Normal diastolic function.
3. Flail likely P2 segment of the posterior leaflet of the mitral valve resulting in severe anteriorly directed mitral regurgitation with Coanda effect.
4. Normal estimated PASP at 15 mmHg.
5. Compared to prior from March 10, 2025, findings are similar with severe mitral regurgitation.
MVR, 08/31/2025:
Procedure(s) Performed:
1. Right mini thoracotomy with right femoral artery and vein cannulation under CALLY guidance
2. Radical mitral valve repair (5 sets of [place] cords with 2 to the anterior leaflet and 3 to the posterior leaflet, quadrangular resection with sliding plasty of the posterior leaflet at P2 along the medial aspect, free margin remodeling of P1
P2, band annuloplasty with a 36 mm band)
3. Placement temporary ventricular pacing wires
4. Trans esophageal echocardiography
5. Left atrial appendage ligation, 35mm device
Intraoperative CALLY, 08/31/2025:
CONCLUSIONS
Normal biventricular systolic function with no regional wall motion
abnormalities. The LVEF is 55-60% by visual inspection. The left ventricle is
mildly dilated with LVIDD of 5.5 cm and the LVIDs is 3.7 cm.
Severe mitral regurgitation from complex dysfunction involving posterior
leaflet prolapse.
The aortic valve is grossly normal in structure and function.
Structurally normal tricuspid valve with mild regurgitation.
Normal thoracic aorta.
Normal left atrial appendage.
POST OPERATIVE FINDINGS
S/P MVR with Left atrial appendage clip
Initially DANII mitral regurgitation was seen upon separation from bypass. After
a quick second run to correct the dysfunction DANII was no longer present. The
mitral band is well-seated. Trace intravalvular regurgitation is seen. The mean
gradient is 3 mmHg. The rhythm is sinus. The left atrial appendage is no longer
visible with color flow Doppler confirming the absence of flow. Otherwise
unchanged exam.
Physical Exam
Vital Signs/Labs
Vital Signs
Temp Pulse Resp BP Pulse Ox
37.1 C 92 12 98/60 97
09/01/25 14:16 09/01/25 14:16 09/01/25 13:00 09/01/25 14:16 09/01/25 14:16
08/31/25 09/01/25 09/02/25
11:59 11:59 11:59
Actual Weight 70 kg 72.6 kg
09/01/25 03:11
09/01/25 03:11
PT 16.8 Sec (11.4-14.6) H 08/31/25 12:17
INR 1.35 08/31/25 12:17
APTT 33.2 Sec (23.4-35.0) 08/31/25 12:17
Magnesium 2.1 mg/dl (1.6-2.3) 09/01/25 03:11
Physical Exam
Constitutional: No acute distress and Comfortable
EENT: Anicteric and Moist mucous membranes
Cardiovascular: Rhythm & rate is regular, Pedal edema is absent, JVD pressure is normal, S1S2 is normal and Murmur/rub/gallop absent
Respiratory: Respiratory effort normal and Other (Decreased throughout.)
GI: Soft, Distention absent, Flat, Non tender and Normal bowel sounds
Neuro/Psych: AO x 3
Data Reviewed
-
Date of Service: September 01, 2025
Medical Decision Making: Reviewed Test Results, Independent Historian Assessment and Test Interpretation
EKG: Tracing Personally Visualized and interpreted and Report Reviewed by me
Echo: Report Reviewed by me
X-Ray/CT/US/MRI/NUC/PET: Image Personally Visualized and interpreted and Report Reviewed by me
Medical Tests (PFT, Pathology etc): Report Reviewed by me
Labs: Labs Reviewed by me
Old Records: Reviewed
[2025-09-01 15:59] LABS: B.E. -2.2 mmol/L; HCO3 22.3 mmol/L (21-28); O2 Saturation % 99.6 % (94-98); PCO2 36 mmHg (32-35); PO2 122 mmHg (83-108); Potassium 4.7 mMOL/L (3.5-5.1); Sodium 131 mMOL/L (136-145)
--- NOTE | 2025-09-01 17:39 | W.PN.ANS.POP ---
Anesthesia Post Operative
- Anesthesia Post Op Note
Vital Signs Stable-See Nursing Note: Yes
Airway Patent: Yes
Adequate Pain Control: Yes
Change in Mental Status: No
Current Postoperative Nausea & Vomiting: No
Anesthesia Complications: No
General Anesthetic Recall: No
Unplanned Admission: No
Post Op Hydration Adequate: Yes
[2025-09-01] MEDS: FLEXERIL 5 MG PO (19:14)
[2025-09-01] MEDS: FLEXBUMIN 100 IV (19:15)
--- NOTE | 2025-09-01 19:45 | PTCARENOTE ---
received pt from previous rn. pt AAOx4. pt c/o incision pain. See NOV. NSR w/ 1st degree AVB, HR 90s. V wire insulated. Trace edema noted. +pulses. pox 96% on RA. non productive cough. IS 750. deep breathing and coughing encouraged. +bs. Aranda
draining clear yellow urine. all surgical incisions intact. CT dressing c/d/i. PIV intact. RIJ cordis infusing KVO. L radial a-line leveled, zeroed, and flushed. plan of care discussed and questions encouraged. call kramer within reach.
[2025-09-01] MEDS: CRESTOR 20 MG PO (21:04)
[2025-09-01] MEDS: LEXAPRO 10 MG PO (21:04)
[2025-09-01] MEDS: DILAUDID 0.25 MG IV (21:10)
[2025-09-02] VITALS (24 sets, daily range): BP systolic 81–112; BP diastolic 44–75; PULSE 94; O2SAT 98–99; BMI 26.9
--- NOTE | 2025-09-02 | PTCARENOTE ---
assumed care of pt from previous RN. pt A&Ox4, resting in bed at time of assessment. SR w/ 1st degree AVB on tele-monitor. temp epicardial v-wires insulated. POX 95% on 2 L NC. abd s/n, +BS. duran catheter draining charly colored urine. all surgical
sites stable, CDI. R IJ Cordis w/ KVO. PIV intact. see worklist for complete nursing assessment, interventions, VS, and I&Os.
[2025-09-02] MEDS: FLEXERIL 5 MG PO (03:08)
[2025-09-02] MEDS: ULTRAM 25 MG PO ×2 (03:08→11:58)
[2025-09-02 03:46] LABS: Blood Urea Nitrogen 17 mg/dl (7-17); Calcium 9.0 mg/dl (8.4-10.2); Carbon Dioxide 27 mmol/L (22-30); Chloride 102 mmol/L (98-107); Estimated Creatinine Clearance 75 ml/min; Glucose 118 mg/dl (70-99); Magnesium 2.2 mg/dl (1.6-2.3); Potassium 4.8 mmol/L (3.5-5.1); Sodium 131 mmol/L (135-145); eGFR > 60.00
[2025-09-02 03:49] LABS: Hematocrit 23.1 % (37.0-47.0); Hemoglobin 7.8 g/dL (12.0-16.0); Mean Corp Hgb Conc. 33.8 g/dL (33.0-37.0); Mean Corpuscular Volume 79.1 fL (81.0-99.0); Platelet Count 132 10^3/uL (130-400); Red Cell Dist. Width 15.4 % (11.5-14.5)
--- NOTE | 2025-09-02 05:19 | W.PN.CT ---
Today's Communication / Plan
-
-pod #2
-no significant issues overnight, no complaints, denies dizziness
-tiny R PTX on postop cxr- stable, follow
-low BP - on Midodrine 5 tid. Holding BB
-Hg 7.8 today (from 8.8 on 09/01, 10.1 on 08/31)- suspect dilutional
-Na 131 today (from 135)
-Uo has increased this am from 25-30 per hr to 45-145 per hr
-consider diuresis with support of Midodrine or Levo
-maintain pw
-Echo on 09/03 (ordered)
-current meds (ASA, Crestor, Amio, Midodrine 5 tid, Lexapro, Mg, Protonix)
-monitor Qt on Amio and Lexapro
-encourage IS, OOB
Assessment / Plan
-
- Severe symptomatic MR - s/p Right mini thoracotomy; Radical mitral valve repair; Left atrial appendage ligation, 35mm clip by Dr. Sanchez on 08/31/25, pod #2
- Intraop CALLY: LVEF preop was 60% with no significant regional wall motion abnormalities. She did have dilated left ventricle dimensions in systole and diastole and severe mitral valve insufficiency with a complex jet that had both an anterior as
well as a central and posterior component. Following surgery, EF remained the same at 60% and low but hyperdynamic. Coming off cardiopulmonary bypass the second time, there was no residual mitral valve insufficiency and the mean gradient was 3
across the valve once the patient was no longer hyperdynamic. Ultimately, there was no residual mitral valve deficiency and no systolic anterior motion of the leaflets after repair. Left atrial appendage was verified to be free of any thrombus or
debris preoperatively and clipped across the transverse sinus using a 35mm device which was later found to be totally occlusive flush to the base.
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
- Severe mitral valve insufficiency, symptomatic
- Dilated left ventricle both in systole and diastole
- Multiple orthopedic issues
- Hyperlipidemia
- R reanal cyst
- Rotator cuff repair 14 yrs ago
- Endometrial polyp excision
- Benign tumor excision on R and L hands
- Hx depression
- Hx herpes
- Former smoker
- Acute postop blood loss anemia - stable, no active bleed
- Acute postop atelectasis
- Acute postop small R PTX
- Acute postop hypovolemia (got 1500 ml of LR and 500 Albumin) with subsequent hypervolemia
- Suspected acute postop pericarditis/+ rub
- Acute postop hyponatremia
Discussed patient care with: Nursing and Care Team
Subjective
-
Date of Service: September 02, 2025
Objective Data
-
PT 16.8 Sec (11.4-14.6) H 08/31/25 12:17
INR 1.35 08/31/25 12:17
APTT 33.2 Sec (23.4-35.0) 08/31/25 12:17
Vital Signs
Vital Signs
Temp Pulse Resp BP Pulse Ox
98.6 F 88 23 89/62 95
09/02/25 00:00 09/02/25 00:00 09/02/25 00:00 09/01/25 23:59 09/02/25 00:00
CT Intake/Output/Weight
09/01/25 09/01/25 09/02/25
06:59 18:59 06:59
Intake Total 892.4 / 2774.6 507.8 / 657.8 150 / 657.8
Output Total 380 / 1065 390 / 525 135 / 525
Balance 512.4 / 1709.6 117.8 / 132.8 15 / 132.8
SaO2: 95
Physical Exam
-
General: AOx3
Cardiovascular: Regular rate & rhythm, No Murmurs, has Rub
Respiratory: Decreased Breath Sounds
Sternum: Stable
Incision: Clean, Dry and Dressing Intact
Abdomen: soft, nontender, nondistended, + decreased bowel sounds
Extremities: No Edema (2+ DPs b/l)
Data Reviewed
-
Lab Results: Results Reviewed
Medications: Active Meds Reviewed
Chest X-Ray: Report Reviewed and Image Reviewed
ECG: Report Reviewed and Image Reviewed
[2025-09-02] MEDS: TYLENOL 975 MG PO ×3 (06:13→21:16)
[2025-09-02] MEDS: ANESTHETIC LOZENGE 1 LOZENGE PO (06:44)
[2025-09-02] MEDS: PROTONIX 40 MG PO (08:42)
[2025-09-02] MEDS: NEURONTIN 100 MG PO ×3 (08:42→21:17)
[2025-09-02] MEDS: LOW STRENGTH ASPIRIN 81 MG PO (08:42)
[2025-09-02] MEDS: SENOKOT 8.6 MG PO ×2 (08:42→20:10)
[2025-09-02] MEDS: PACERONE 200 MG PO ×3 (08:43→21:17)
[2025-09-02] MEDS: LIDOCAINE 4% PATCH 1 PATCH TOPICAL (08:43)
[2025-09-02] MEDS: MAGNESIUM OXIDE 400 MG PO ×2 (08:43→20:10)
[2025-09-02] MEDS: BACTROBAN 2% OINTMENT 1 APPLIC NASAL ×2 (08:44→20:10)
--- NOTE | 2025-09-02 08:51 | W.PN.CD ---
Today's Communication / Plan
-
diuresis
monitor Hb for improvement with diuresis
IS
consider treatment for pericarditis if sx progress or effusion on echo
beta eduardo once off midodrine
Impression / Plan
-
Impression/Plan: 55 year old woman with HTN, HLD, severe degenerative mitral valve regurgitation admitted for elective MV repair with Dr. Sanchez.
#Severe, degenerative mitral valve regurgitation
-Chronic, progressive symptoms.
-S/P #36 Sewell Physioflex band annuloplasty (SN [id number]) with 2 sets of [place] cords to anterior leaflet, quadrangular resection of P2 with 3 [place] cords to posterior leaflet with Dr. Sanchez (08/31/2025).
-Continue post operative amiodarone for AF prophylaxis. Patient is s/p LAAE with #[address] Sanchez (08/31/2025).
-Relative hypovolemia, patient responded to albumin/volume infusion and midodrine.
-Routine post operative management.
-Wean pressors/inotropes for MAP > 65 mmHg, currently off norepi on midodrine
-beta eduardo once blood pressure normalized
-5 kg up today with lower extremity edema, recommend diuresis
-Pain/chest tube management per CT surgery. Tiny apical right PTX.
-Incentive spirometry.
-Ambulate when appropriate.
-amio for post op afib prevention per CTS
#Anemia, post-op
-suspect dilutional
-trend with diuresis
-transfuse for Hb goal >7
#Rub on exam
-patient with rub and pleuritic CP c/w pericarditis, no significant ST abnormalities on EKG
-echo pending tomorrow
-if worsening pain and/or effusion noted on echo, treat for pericarditis with high dose ASA taper and colchicine x 3 months
#HTN
-Chronic, currently relatively hypotensive.
-Metoprolol on hold.
#HLD
-Chronic, stable.
-Continue rosuvastatin 20 mg daily.
Subjective/Interval History:
Weight up 3.1 kg from yesterday, 5 kg from baseline
c/o pleuritic chest discomfort, rub noted
Lower extremity edema.
Hbg dropped from 10.1 to 8.8 to 7.8
on midodrine for hypotension
DATA:
CALLY, 05/10/2025:
SUMMARY
1. Normal left ventricular systolic function.
2. Mitral valve with posterior leaflet prolapse and severe eccentric mitral regurgitation.
3. Compared with the previous transthoracic echo findings are similar.
Cardiac Catheterization, 05/28/2025:
CORONARY ANGIOGRAPHY
Dominance: Right
LM: Large, normal
LAD: Large vessel giving rise to a moderate caliber D1/ramus and moderate caliber D2 before wrapping around the apex. There is no coronary artery disease.
LCx: Large vessel giving rise to a small OM1 and large branching OM2. There is no coronary artery disease.
RCA: Large vessel with an anterior takeoff giving rise to a moderate caliber RPDA. There is no coronary artery disease.
CONCLUSIONS
1. Mildly elevated LV filling pressure
2. No coronary artery disease
TTE, 08/03/2025:
SUMMARY
1. Normal biventricular size and function without regional wall motion abnormalities.
2. LVEF is 60-65% by volumetric assessment. Normal diastolic function.
3. Flail likely P2 segment of the posterior leaflet of the mitral valve resulting in severe anteriorly directed mitral regurgitation with Coanda effect.
4. Normal estimated PASP at 15 mmHg.
5. Compared to prior from March 10, 2025, findings are similar with severe mitral regurgitation.
MVR, 08/31/2025:
Procedure(s) Performed:
1. Right mini thoracotomy with right femoral artery and vein cannulation under CALLY guidance
2. Radical mitral valve repair (5 sets of [place]-T[place] cords with 2 to the anterior leaflet and 3 to the posterior leaflet, quadrangular resection with sliding plasty of the posterior leaflet at P2 along the medial aspect, free margin remodeling of P1
P2, band annuloplasty with a 36 mm band)
3. Placement temporary ventricular pacing wires
4. Trans esophageal echocardiography
5. Left atrial appendage ligation, 35mm device
Intraoperative CALLY, 08/31/2025:
CONCLUSIONS
Normal biventricular systolic function with no regional wall motion
abnormalities. The LVEF is 55-60% by visual inspection. The left ventricle is
mildly dilated with LVIDD of 5.5 cm and the LVIDs is 3.7 cm.
Severe mitral regurgitation from complex dysfunction involving posterior
leaflet prolapse.
The aortic valve is grossly normal in structure and function.
Structurally normal tricuspid valve with mild regurgitation.
Normal thoracic aorta.
Normal left atrial appendage.
POST OPERATIVE FINDINGS
S/P MVR with Left atrial appendage clip
Initially DANII mitral regurgitation was seen upon separation from bypass. After
a quick second run to correct the dysfunction DANII was no longer present. The
mitral band is well-seated. Trace intravalvular regurgitation is seen. The mean
gradient is 3 mmHg. The rhythm is sinus. The left atrial appendage is no longer
visible with color flow Doppler confirming the absence of flow. Otherwise
unchanged exam.
Physical Exam
Vital Signs/Labs
Vital Signs
Temp Pulse Resp BP Pulse Ox
37.4 C 93 18 92/57 95
09/02/25 08:30 09/02/25 08:43 09/02/25 08:30 09/02/25 08:43 09/02/25 08:30
09/01/25 09/02/25 09/03/25
06:59 06:59 06:59
Actual Weight 72.6 kg 75.7 kg
09/02/25 03:01
09/02/25 03:00
PT 16.8 Sec (11.4-14.6) H 08/31/25 12:17
INR 1.35 08/31/25 12:17
APTT 33.2 Sec (23.4-35.0) 08/31/25 12:17
Magnesium 2.2 mg/dl (1.6-2.3) 09/02/25 03:00
Physical Exam
Constitutional: No acute distress
Cardiovascular: Rhythm & rate is regular and Rub present
Respiratory: Respiratory effort normal
Neuro/Psych: AO x 3
Data Reviewed
-
Date of Service: September 02, 2025
Medical Decision Making: Reviewed Test Results
EKG: Tracing Personally Visualized and interpreted
X-Ray/CT/US/MRI/NUC/PET: Image Personally Visualized and interpreted
Labs: Labs Reviewed by me
--- NOTE | 2025-09-02 09:00 | PTCARENOTE ---
Rec'd pt this shift awake and alert sitting in chair. Pt with left radial A-line and Rt IJ cordis. Pt denies pain, denies sob. NSR on monitor. AM meds given. Type and cross sent. Pt encouraged to cough and deep breath and to use IS. See worklist for
VS/I and O and assessments.
[2025-09-02] MEDS: LASIX 40 MG IV (11:40)
--- NOTE | 2025-09-02 11:45 | CM ---
Chart reviewed. Patient lying in bed getting a unit of PRBC, at bedside. Patient is independent of ADLS, lives with her in a 2 STH, 4 JODEI, 0 DME. Plan is for the patient to return home with CT Transitional RN. CM to follow
[2025-09-02] MEDS: THERAGRAN 1 TABLET PO (11:59)
--- NOTE | 2025-09-02 12:24 | PTCARENOTE ---
1 unit PRBC transfused and completed. 40mg IV lasix given. Left radial lorena d/c'd. Pt ambulated to bathroom with 2 person assist, tolerated well.
--- NOTE | 2025-09-02 13:08 | W.PN.INTV ---
Today's Communication / Plan
Recommendations
Doing well, remains off pressors, stable on RA
Encouraged OOB, ambulation
Further postop management per team
Ok to transfer to [facility], we will sign off upon transfer
Assessment
-
55-year-old female with prior history of hypertension, hyperlipidemia, mitral regurgitation presenting for elective valve repair. Underwent mitral valve repair 08/31/25, tolerated well and postoperatively transferred to CVICU .management
Severe MR s/p MV repair +/- LAAE 08/31/25
Postop anemia
Conditions present prior to admission
endometrial polyp-excision
benign tumor right hand-excision right hand lesion
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
rotator cuff tear/reconstruction-rotator cuff repair and shoulder reconstruction
knee dislocation-left knee reconstruction
herpes labialis
mitral valve prolapse, posterior leaflet ( november 2021)
Moderate mitral regurgitation (November 2021)
ECHO 2023- MVP, mod to severe MR
hyperlipidemia
left knee arthroscopy
shoulder arthroscopy right
removal of endometrial polyps ( benign)
Plan
S/p MVR POD #2
Titrated off pressors per protocol
ECHO reviewed with normal function
PA catheter discontinued
Management of chest tubes per primary service-discontinued
Pain control
RASS goal of 0 to -1
Intubated for procedure, extubated and doing well
ABG(s) reviewed--hypercarbia noted 7.--resolved
CXR with stable postop changes
Stable on RA, off supplement oxygen
No prior history of pulmonary disease
No prior PFTs for review
Can add nebulizers if needed
Aspiration precautions
Encouraged incentive spirometry, OOB/ambulation/early mobility
Advance diet as tolerated following extubation
GI prophylaxis if indicated for mechanical ventilation >48 hours
Monitor critical I/O's
Aranda/chest tube output--discontinued
Hb/platelets postoperatively stable
Trend CBC for now
Can transfuse if indicated for Hb <7, plt <50 in surgical patients
DVT prophylaxis including SCDs
Insulin protocol discontinued
OOB
Diagnostic Data
Chest X-Ray: 08/31/25- Postop cardiothoracic surgery. There is a tiny right apical pneumothorax.
CT Scan:
Echo: 08/03/25- 1. Normal biventricular size and function without regional wall motion abnormalities.
2. LVEF is 60-65% by volumetric assessment. Normal diastolic function.
3. Flail likely P2 segment of the posterior leaflet of the mitral valve resulting in severe anteriorly directed mitral regurgitation with Coanda effect.
4. Normal estimated PASP at 15 mmHg.
5. Compared to prior from March 10, 2025, findings are similar with severe mitral regurgitation.
PFT's:
Reports and relevant images were personally reviewed.
Critical Care time 31 mins -- The patient is admitted for acute critical illness for the treatment of vital organ failure and/or prevention of further life-threatening conditions. Total care includes time spent in review of history, physical exam,
medications, hemodynamic/ventilator parameters, laboratory data, imaging and discussion with house staff, pharmacy, respiratory therapy, trommel tender, and nursing.
Subjective Dataa
Subjective Data
Date of Service:
Date of Service: September 02, 2025
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
Subjective:
No new complaints, stable on RA
Off pressors
Objective Data
Data Reviewed
Vital Signs / I&O / Oxygen:
Vital Signs
Temp Pulse Resp BP Pulse Ox
99.0 F 97 24 97/65 96
09/02/25 11:35 09/02/25 12:15 09/02/25 12:15 09/02/25 12:01 09/02/25 12:01
Intake and Output
09/01/25 09/02/25 09/03/25
06:59 06:59 06:59
Intake Total 2696.1 / 2774.6 717.8 / 717.8 750 / 750
Output Total 1035 / 1065 870 / 870 875 / 875
Balance 1661.1 / 1709.6 -152.2 / -152.2 -125 / -125
SaO2 96
Nasal Cannula flow liters per 2
minute
Physical Exam
General: Comfortable and Other (NAD)
HEENT: Normocephalic, Anicteric and Moist Mucous Membranes
Cardiovascular: S1-S2 and Regular Rhythm
Respiratory: Clear and Non-Labored Respirations
GI: Soft, Non Distended and Non Tender
Neurology: Awake, Alert, Oriented and No Motor Deficits
Skin: Warm, Dry and Good Color
Labs/Micro/Reports
Lab Data
09/02/25 03:01
09/02/25 03:00
Laboratory Results
09/01/25
15:43
pH 7.40
pCO2 36 H
pO2 122 H
HCO3 22.3
O2 Delivery Level
[2025-09-02] MEDS: NSS 500 IV (13:17)
[2025-09-02] MEDS: FERRLECIT 110 MG IV (15:30)
[2025-09-02] MEDS: ULTRAM 50 MG PO (18:06)
--- NOTE | 2025-09-02 20:00 | PTCARENOTE ---
Assumed care of the patient at 1900. Patient in bed, at bedside, AOx3, quiet. SR w/ 1st degree AVB on CM, rates 80-90's, pressures soft; harsh rub/? murmur heard on auscultation, CVPA aware; pulses weakly palpable, +1 LE edema, v wire
insulated. On RA, SpO2 93%+, no cough noted at this time, lung dim at the bases, IS encouraged. Appetite poor per patient, abd SNT, +BS, pt reports small BM today; voiding spontaneously into the toilet without difficulty. All surgical sites stable
and intact, MELQUIADES, TTP. RIJ Cordis in place, PIVx1 RAC INT. Patient updated on POC, in agreement, call kramer within reach, assessment of needs ongoing.
[2025-09-02] MEDS: CRESTOR 20 MG PO (21:16)
[2025-09-02] MEDS: LEXAPRO 10 MG PO (21:17)
[2025-09-03] VITALS (32 sets, daily range): BP systolic 79–101; BP diastolic 49–67; PULSE 110; O2SAT 98–100; BMI 26.9
--- NOTE | 2025-09-03 00:05 | PTCARENOTE ---
Pt sleeping between care, no acute issues. BPs remain soft but stable. Call kramer within reach.
[2025-09-03] MEDS: ULTRAM 50 MG PO ×2 (02:22→21:26)
--- NOTE | 2025-09-03 04:30 | PTCARENOTE ---
No acute changes, labs drawn and sent, assessment of needs ongoing.
[2025-09-03 04:53] LABS: Hematocrit 25.4 % (37.0-47.0); Hemoglobin 8.4 g/dL (12.0-16.0); Mean Corp Hgb Conc. 33.1 g/dL (33.0-37.0); Mean Corpuscular Volume 77.9 fL (81.0-99.0); Platelet Count 131 10^3/uL (130-400); Red Cell Dist. Width 16.4 % (11.5-14.5)
[2025-09-03] MEDS: CALCIUM GLUCONATE 100 IV (05:01)
--- NOTE | 2025-09-03 05:01 | W.PN.CT ---
Today's Communication / Plan
-
-pod #3
-no significant issues overnight, no complaints, denies dizziness or GARCIA
-got 1 pRBC on 09/02 for Hg 7.8. Hg today 8.4
-diuresed with 40 iv Lasix on 09/02. UO 600/1475- continue Lasix
-BMP pending
-repleted Ca
-Echo today
-current meds (ASA, Crestor, Amio, Midodrine 5 tid, Lexapro, Mg, Protonix). Holding BB d/t low BP
-monitor Qt on Amio and Lexapro. ECG this am: nsr with 1st degree AVB, PVCs, Qt/Qtc 382/464 ms
-encourage IS, OOB
-
Assessment / Plan
-
- Severe symptomatic MR - s/p Right mini thoracotomy; Radical mitral valve repair; Left atrial appendage ligation, 35mm clip by Dr. Sanchez on 08/31/25, pod #3
- Intraop CALLY: LVEF preop was 60% with no significant regional wall motion abnormalities. She did have dilated left ventricle dimensions in systole and diastole and severe mitral valve insufficiency with a complex jet that had both an anterior as
well as a central and posterior component. Following surgery, EF remained the same at 60% and low but hyperdynamic. Coming off cardiopulmonary bypass the second time, there was no residual mitral valve insufficiency and the mean gradient was 3
across the valve once the patient was no longer hyperdynamic. Ultimately, there was no residual mitral valve deficiency and no systolic anterior motion of the leaflets after repair. Left atrial appendage was verified to be free of any thrombus or
debris preoperatively and clipped across the transverse sinus using a 35mm device which was later found to be totally occlusive flush to the base.
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
- Severe mitral valve insufficiency, symptomatic
- Dilated left ventricle both in systole and diastole
- Multiple orthopedic issues
- Hyperlipidemia
- R reanal cyst
- Rotator cuff repair 14 yrs ago
- Endometrial polyp excision
- Benign tumor excision on R and L hands
- Hx depression
- Hx herpes
- Former smoker
- Acute postop blood loss anemia - stable, no active bleed, s/p 1 pRBC on 09/02 for Hg 7.8
- Acute postop atelectasis
- Acute postop small R PTX-stable
- Acute postop hypovolemia (got 1500 ml of LR and 500 Albumin) with subsequent hypervolemia
- Suspected acute postop pericarditis/+ rub
- Acute postop hyponatremia
Discussed patient care with: Nursing and Care Team
Subjective
-
Date of Service: September 02, 2025
Objective Data
-
Lab Results
09/02/25 03:01
09/02/25 03:00
PT 16.8 Sec (11.4-14.6) H 08/31/25 12:17
INR 1.35 08/31/25 12:17
APTT 33.2 Sec (23.4-35.0) 08/31/25 12:17
Vital Signs
Vital Signs
Temp Pulse Resp BP Pulse Ox
98.4 F 87 19 95/66 93
09/02/25 20:00 09/02/25 23:00 09/02/25 23:00 09/02/25 23:00 09/02/25 23:00
CT Intake/Output/Weight
09/02/25 09/02/25 09/03/25
06:59 18:59 06:59
Intake Total 210 / 717.8 1330 / 1490 160 / 1490
Output Total 480 / 870 875 / 1025 150 / 1025
Balance -270 / -152.2 455 / 465 10 / 465
SaO2: 93
Physical Exam
-
Cardiovascular: Regular rate & rhythm and Rub
Respiratory: Decreased Breath Sounds
Sternum: Stable
Incision: Clean, Dry and Dressing Intact
Extremities: Edema +1
Data Reviewed
-
Lab Results: Results Reviewed
Medications: Active Meds Reviewed
Chest X-Ray: Report Reviewed and Image Reviewed
ECG: Report Reviewed and Image Reviewed
[2025-09-03] MEDS: TYLENOL 975 MG PO ×3 (05:02→21:25)
[2025-09-03 05:21] LABS: Blood Urea Nitrogen 16 mg/dl (7-17); Calcium 8.7 mg/dl (8.4-10.2); Carbon Dioxide 30 mmol/L (22-30); Chloride 101 mmol/L (98-107); Estimated Creatinine Clearance 75 ml/min; Glucose 94 mg/dl (70-99); Magnesium 2.2 mg/dl (1.6-2.3); Potassium 3.9 mmol/L (3.5-5.1); Sodium 132 mmol/L (135-145); eGFR > 60.00
[2025-09-03] MEDS: LASIX 40 MG IV (08:35)
[2025-09-03] MEDS: KCL 40 MEQ PO (08:36)
[2025-09-03] MEDS: SENOKOT 8.6 MG PO ×2 (08:36→20:34)
[2025-09-03] MEDS: THERAGRAN 1 TABLET PO (08:36)
[2025-09-03] MEDS: MAGNESIUM OXIDE 400 MG PO ×2 (08:36→20:34)
[2025-09-03] MEDS: PACERONE 200 MG PO ×3 (08:36→21:25)
[2025-09-03] MEDS: NEURONTIN 100 MG PO ×3 (08:36→21:25)
[2025-09-03] MEDS: PROTONIX 40 MG PO (08:36)
[2025-09-03] MEDS: LOW STRENGTH ASPIRIN 81 MG PO (08:36)
[2025-09-03] MEDS: LIDOCAINE 4% PATCH 1 PATCH TOPICAL (08:37)
[2025-09-03] MEDS: NSS IV (08:37)
[2025-09-03] MEDS: BACTROBAN 2% OINTMENT 1 APPLIC NASAL ×2 (08:37→20:34)
--- NOTE | 2025-09-03 08:45 | PTCARENOTE ---
Assumed care of patient at 0700. Pt is awake, alert, and oriented. Pt with discomfort in right groin when ambulating, denied pain medications at this time. Pt currently SR with first degree AV block. Epicardial V wire insulated. Pulse oximetry 95%
on room air. Continued use of IS encouraged, achieving 750. Pt with fair appetite, tolerating diet. Voiding in bathroom without issue. Right lateral chest incisions approximated with surgical adhesive. Right groin puncture approximated. Right IJ
cordis intact. Pt currently OOB in chair with call kramer within reach and at bedside.
--- NOTE | 2025-09-03 09:50 | PTCARENOTE ---
IRAD note: Patient arrived to IRAD for right Thoracentesis. patient c/o palpitation. Heart monitor showed A.fib. CVICU nurse Frank notified. patient c/o feeling tired and palpitation but no other symptoms regarding A.fib. right lung US done, not
enough fluid to tap safely. procedure cancelled.
--- NOTE | 2025-09-03 10:03 | CM ---
Chart reviewed. Patient is independent of ADLS, lives with her , 2 STH, 4 JODIE, 0 DME. Plan is for the patient to return home with CT Transitional RN. CM to follow
[2025-09-03] MEDS: CORDARONE 259 MG IV ×2 (10:19→17:48)
[2025-09-03] MEDS: CORDARONE 103 MG IV (10:19)
[2025-09-03] MEDS: XANAX 0.25 MG PO (10:49)
--- NOTE | 2025-09-03 11:50 | PTCARENOTE ---
Pt sent to IR, right thoracentesis unable to be performed due to insufficient fluid to tap safely. While in IR at 0909 pt converted to Afib with HR as high as 120's. Pt with reports of palpations and overall fatigue. On return to CVICU pt remained
Afib. Amio bolus administered and Amio gtt initiated. Pt converted back to SR at 1018. HR now 85 BP 81/[address] GAYLA, Rebeca, made aware.
[2025-09-03] MEDS: FERRLECIT 110 MG IV (14:09)
[2025-09-03] MEDS: FLEXBUMIN 50 IV (15:04)
--- NOTE | 2025-09-03 16:30 | PTCARENOTE ---
Pt remains SR with first degree AV block, HR 81. BP 79/[address] GAYLA, mona Jose. 25% Albumin administered per order. Repeat BP 95/66 MAP 73. Pt ambulated in hallway with RN assistance without issue. Pt remains on Amio gtt
per order.
--- NOTE | 2025-09-03 17:44 | W.PN.CD ---
Today's Communication / Plan
-
cont. gentle diuresis
monitor effusion with serial xray
BB when BP allows
amio for Afib, AC if longer episodes
IS, ambulation
Impression / Plan
-
55 year old woman with HTN, HLD, severe degenerative mitral valve regurgitation admitted for elective MV repair with Dr. Sanchez.
#Severe, degenerative mitral valve regurgitation
-chronic, progressive symptoms.
-s/p #36 Sewell Physioflex band annuloplasty (SN [id number]) with 2 sets of [place]-Tung cords to anterior leaflet, quadrangular resection of P2 with 3 [place] cords to posterior leaflet with Dr. Sanchez (08/31/2025). Also LAAE with #35 AtriClip.
-Relative hypovolemia post op, patient responded to albumin/volume infusion and midodrine. S/p 1U pRBC 09/02. Likely a component of post-op vasoplegia.
-off pressors; holding BB due to low blood pressures, cont. midodrine
-beta eduardo once blood pressure normalized
-cont. diuresis with product administration and developing R pleural effusion
-Incentive spirometry
-Ambulate
#R Pleural effusion
-IR to evaluate for possible thoracentesis, not large enough to top
-serial x-ray to monitor
-diuresis
#Afib
-1 hour episdoe noted with symtpoms
-on amio, rate controlled
-echo today with normal function
-hold off on anticoagulation unless longer episodes noted
-add BB when tolerated by BP
#Anemia, post-op
-suspect dilutional
-trend with diuresis
-transfuse for Hb goal >7
#Rub on exam
-patient with rub and pleuritic CP c/w pericarditis, no significant ST abnormalities on EKG
-echo without effusion
#HTN
-Chronic, currently relatively hypotensive.
-Metoprolol on hold.
#HLD
-Chronic, stable.
-Continue rosuvastatin 20 mg daily.
TTE 09/02/2025
SUMMARY
1. Low normal left ventricular systolic function. LVEF 53%.
2. S/p mitral valve repair with mean gradient 4 mmHg. No mitral regurgitation.
3. No evidence of pericardial effusion.
4. Normal pulmonary artery systolic pressure.
5. Since prior transthoracic echocardiogram, there has been interval mitral valve repair.
Physical Exam
Vital Signs/Labs
Vital Signs
Temp Pulse Resp BP Pulse Ox
36.6 C 80 18 87/57 97
09/03/25 16:20 09/03/25 17:00 09/03/25 16:20 09/03/25 17:00 09/03/25 16:20
09/02/25 09/03/25 09/04/25
06:59 06:59 06:59
Actual Weight 75.7 kg 75.6 kg
09/03/25 04:34
09/03/25 04:34
PT 16.8 Sec (11.4-14.6) H 08/31/25 12:17
INR 1.35 08/31/25 12:17
APTT 33.2 Sec (23.4-35.0) 08/31/25 12:17
Magnesium 2.2 mg/dl (1.6-2.3) 09/03/25 04:34
Physical Exam
Constitutional: Comfortable
Cardiovascular: Rhythm & rate is regular
Respiratory: Respiratory effort normal
Neuro/Psych: AO x 3
Data Reviewed
-
Date of Service: September 03, 2025
Medical Decision Making: Reviewed Test Results
EKG: Tracing Personally Visualized and interpreted
Echo: Tracing Personally Visualized and interpreted
Labs: Labs Reviewed by me
--- NOTE | 2025-09-03 20:00 | PTCARENOTE ---
Resumed care of the patient at 1900. Pt OOB to the chair, at bedside, AOx3. SR w/ 1st degree AVB on CM, no ectopy noted, rates 80's, pressures continue to be low, previous heart tones appreciated have much improved, no rub/murmur/heart tones
audible, pulses weakly palpable, trace LE edema, v wire insulated, dressing changed. RA satting 96%, weak cough, IS encouraged, lungs dim at the bases. PO intake encouraged, BM today per patient, abd SNT, normoactive BS; voiding spontaneously into
the toilet without difficulty. All surgical sites stable and intact, MID TEACHER, TTP. RIJ Cordis in place, PIVx1 RAC INT. Amio gtt maintained. Pt and updated on POC, call kramer within reach, assessment of needs ongoing.
[2025-09-03] MEDS: LEXAPRO 10 MG PO (21:25)
[2025-09-03] MEDS: CRESTOR 20 MG PO (21:25)
[2025-09-03] MEDS: KCL 20 MEQ PO (21:26)
[2025-09-04] VITALS (52 sets, daily range): BP systolic 68–106; BP diastolic 35–68; PULSE 79; O2SAT 97–99; BMI 27.0
--- NOTE | 2025-09-04 00:45 | PTCARENOTE ---
Noted increased PACs on the monitor, pt maintained on Amio gtt, rate 70's, pressures low and CVPA aware. Patient denies symptoms of hypotension, ambulated without difficulty with standby assistance to the bathroom. Placed back into chair - sleeping
upright for comfort d/t back pain. Call kramer remains in reach.
--- NOTE | 2025-09-04 01:01 | W.PN.CT ---
Today's Communication / Plan
-
Plan:
-No major issues overnight. Hemodynamically and neurologically intact
-Went into a-fib with RVR x 1 hr yesterday 09/03 and is currently on Amiodarone gtt. No further a-fib since
-BP has been soft postop, currently on Midodrine. BB is on hold
-Will replete ca++ to help augment BP
-Noted to have b/l pleural effusion but deemed to small for thoracentesis per IR. F/U cxr
-Will diurese as BP permits
-Repeat echo yesterday 09/03 showed a well seated MV repair with MG 4 mmHg, no MR, LVEF 53%
-Cont. current meds (ASA, Crestor, Amio, Midodrine 5 tid, Lexapro, Mg, Protonix). Holding BB d/t low B
-Will d/c cordis later today after completion of Amiodarone gtt
-Will keep temporary PW another day
-Monitor hyponatremia, 133. Will diurese as BP permits, fluid restriction
-Monitor h/h 8.1/24.4. Denies lightheadedness or dizziness, 'just weak'
-Encourage use of IS
-OOB into chair/Ambulate
-Likely d/c home tomorrow
Assessment / Plan
-
- Severe symptomatic MR - s/p Right mini thoracotomy; Radical mitral valve repair; Left atrial appendage ligation, 35mm clip by Dr. Sanchez on 08/31/25, pod #4
- Intraop CALLY: LVEF preop was 60% with no significant regional wall motion abnormalities. She did have dilated left ventricle dimensions in systole and diastole and severe mitral valve insufficiency with a complex jet that had both an anterior as
well as a central and posterior component. Following surgery, EF remained the same at 60% and low but hyperdynamic. Coming off cardiopulmonary bypass the second time, there was no residual mitral valve insufficiency and the mean gradient was 3
across the valve once the patient was no longer hyperdynamic. Ultimately, there was no residual mitral valve deficiency and no systolic anterior motion of the leaflets after repair. Left atrial appendage was verified to be free of any thrombus or
debris preoperatively and clipped across the transverse sinus using a 35mm device which was later found to be totally occlusive flush to the base.
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
- Severe mitral valve insufficiency, symptomatic
- Dilated left ventricle both in systole and diastole
- Multiple orthopedic issues
- Hyperlipidemia
- R reanal cyst
- Rotator cuff repair 14 yrs ago
- Endometrial polyp excision
- Benign tumor excision on R and L hands
- Hx depression
- Hx herpes
- Former smoker
- Acute postop blood loss anemia - stable, no active bleed, s/p 1 pRBC on 09/02 for Hg 7.8
- Acute postop atelectasis
- Acute postop small R PTX-stable
- Acute postop small b/l pleural effusion
- Acute postop hypovolemia (got 1500 ml of LR and 500 Albumin) with subsequent hypervolemia
- Suspected acute postop pericarditis/+ rub
- Acute postop hyponatremia
- Acute postop a-fib with RVR
Discussed patient care with: Cardiology, Nursing, Respiratory Therapy, Pharmacy and Care Team
Subjective
-
Date of Service: September 04, 2025
Pt c/o mild incisional pain, otherwise feels well
Objective Data
-
PT 16.8 Sec (11.4-14.6) H 08/31/25 12:17
INR 1.35 08/31/25 12:17
APTT 33.2 Sec (23.4-35.0) 08/31/25 12:17
Vital Signs
Vital Signs
Temp Pulse Resp BP Pulse Ox
98.9 F 77 18 87/55 94
09/03/25 20:00 09/03/25 22:30 09/03/25 20:00 09/03/25 22:00 09/03/25 22:30
CT Intake/Output/Weight
09/03/25 09/03/25 09/04/25
06:59 18:59 06:59
Intake Total 600 / 1930 506.5 / 506.5
Output Total 600 / 1475 1825 / 2310 485 / 2310
Balance 0 / 455 -1318.5 / -1803.5 -485 / -1803.5
SaO2: 94 (RA)
Physical Exam
-
General: Awake, Oriented and AOx3
Cardiovascular: Regular rate & rhythm, No Murmurs and No Gallop
Respiratory: Decreased Breath Sounds (at bases, otherwise clear) and Other
Sternum: Stable
Incision: Clean, Dry, Intact and Dressing Intact
Extremities: Other (+trace edema)
Data Reviewed
-
Lab Results: Results Reviewed
Medications: Active Meds Reviewed
Chest X-Ray: Report Reviewed and Image Reviewed
ECG: Report Reviewed and Image Reviewed
[2025-09-04 03:48] LABS: Hematocrit 24.4 % (37.0-47.0); Hemoglobin 8.1 g/dL (12.0-16.0); Mean Corp Hgb Conc. 33.2 g/dL (33.0-37.0); Mean Corpuscular Volume 77.7 fL (81.0-99.0); Platelet Count 172 10^3/uL (130-400); Red Cell Dist. Width 16.2 % (11.5-14.5)
[2025-09-04 03:55] LABS: Blood Urea Nitrogen 13 mg/dl (7-17); Calcium 8.5 mg/dl (8.4-10.2); Carbon Dioxide 31 mmol/L (22-30); Chloride 100 mmol/L (98-107); Estimated Creatinine Clearance 75 ml/min; Glucose 96 mg/dl (70-99); Magnesium 2.2 mg/dl (1.6-2.3); Potassium 4.2 mmol/L (3.5-5.1); Sodium 133 mmol/L (135-145); eGFR > 60.00
--- NOTE | 2025-09-04 04:30 | PTCARENOTE ---
No acute changes. Patient remains in the chair and sleeping between care. Pressures continue to be low, pt asymptomatic.
[2025-09-04] MEDS: CALCIUM GLUCONATE 130 MG IV ×2 (05:02→19:45)
[2025-09-04] MEDS: TYLENOL 975 MG PO ×3 (05:03→21:09)
--- NOTE | 2025-09-04 06:59 | PTCARENOTE ---
BP 73/39, pt in bed, asymptomatic. CVPA aware, await CaGluc and midodrine to be therapeutic and continue to monitor.
[2025-09-04] MEDS: LOW STRENGTH ASPIRIN 81 MG PO (08:24)
[2025-09-04] MEDS: PROTONIX 40 MG PO (08:24)
[2025-09-04] MEDS: NEURONTIN 100 MG PO ×2 (08:25→17:11)
[2025-09-04] MEDS: MAGNESIUM OXIDE 400 MG PO ×2 (08:25→19:45)
[2025-09-04] MEDS: PACERONE 200 MG PO ×3 (08:25→21:09)
[2025-09-04] MEDS: THERAGRAN 1 TABLET PO (08:25)
[2025-09-04] MEDS: SENOKOT PO ×2 (08:26→19:46)
[2025-09-04] MEDS: BACTROBAN 2% OINTMENT 1 APPLIC NASAL (08:28)
[2025-09-04] MEDS: LIDOCAINE 4% PATCH TOPICAL (08:28)
[2025-09-04] MEDS: NSS IV (08:29)
--- NOTE | 2025-09-04 09:50 | PTCARENOTE ---
Resumed care of the patient at 0700. Pt fully alert and oriented, bedside. SR w/ 1st degree AVB on monitor, rates 70-80's, pressures continue to be low, improves with ambulation. No complaints of dizziness, pulses weak in upper and lower
bilateral extremities but palpable, trace LE edema, v wire cut by NEUROLOGICAL SURGEON. Room air, satting 96%, weak non-productive cough, IS encouraged, lungs dim at the bases. PO intake encouraged. abd Soft non-tender, normoactive BS; voiding spontaneously into the
toilet without difficulty. All surgical sites stable and intact, MELQUIADES, TTP. RIJ Cordis in place, PIVx1 RAC. Amio gtt discontinued. Pt and updated on POC, call kramer within reach.
--- NOTE | 2025-09-04 09:57 | W.PN.UPDATE ---
Update Note
Progress Note Update
No pacing required. Maintaining sinus rhythm. Temporary ventricular pacing wires clipped at skin level. 1PRBC for fatigue and Hb 8.1.
[2025-09-04] MEDS: ULTRAM 50 MG PO (10:49)
--- NOTE | 2025-09-04 12:25 | W.PN.CD ---
Today's Communication / Plan
-
� Blood transfusion
� Holding metoprolol.
Continue amiodarone 200 3 times daily.
Impression / Plan
-
55 year old woman with HTN, HLD, severe degenerative mitral valve regurgitation admitted for elective MV repair with Dr. Sanchez.
#Severe, degenerative mitral valve regurgitation
-chronic, progressive symptoms.
-s/p #36 [place] Physioflex band annuloplasty (SN [id number]) with 2 sets of [place]-Tung cords to anterior leaflet, quadrangular resection of P2 with 3 [place]-Tung cords to posterior leaflet with Dr. Sanchez (08/31/2025). Also LAAE with #35 AtriClip.
-Relative hypovolemia post op, patient responded to albumin/volume infusion and midodrine. S/p 1U pRBC 09/02 and repeat now today on 09/04/2020
-Likely a component of post-op vasoplegia -statin therapy sometimes is associated with vasoplegia perioperatively. If concern remains, we can hold rosuvastatin for few days before starting once vascular tone is recovered
-off pressors; holding BB due to low blood pressures, cont. midodrine
-beta eduardo once blood pressure normalized
-Transfusing 1 unit of packed RBC today.
-cont. diuresis with product administration and developing R pleural effusion
-Incentive spirometry
-Ambulate
#R Pleural effusion
-IR to evaluate for possible thoracentesis, not large enough to top
-serial x-ray to monitor
-diuresis
#Afib
-1 hour episdoe noted with symtpoms
-on amio, rate controlled
-echo today with normal function
-hold off on anticoagulation unless longer episodes noted
-add BB when tolerated by BP
#Anemia, post-op
-suspect dilutional
-trend with diuresis
-transfuse for Hb goal >7
#Rub on exam
-patient with rub and pleuritic CP c/w pericarditis, no significant ST abnormalities on EKG
-echo without effusion
#HTN
-Chronic, currently relatively hypotensive.
-Metoprolol on hold.
#HLD
-Chronic, stable.
-Continue rosuvastatin 20 mg daily.
TTE 09/02/2025
SUMMARY
1. Low normal left ventricular systolic function. LVEF 53%.
2. S/p mitral valve repair with mean gradient 4 mmHg. No mitral regurgitation.
3. No evidence of pericardial effusion.
4. Normal pulmonary artery systolic pressure.
5. Since prior transthoracic echocardiogram, there has been interval mitral valve repair.
Physical Exam
Vital Signs/Labs
Vital Signs
Temp Pulse Resp BP Pulse Ox
97.5 F 81 16 95/54 96
09/04/25 11:55 09/04/25 11:55 09/04/25 11:55 09/04/25 11:55 09/04/25 11:58
09/03/25 09/04/25 09/05/25
06:59 06:59 06:59
Actual Weight 75.6 kg 75.8 kg
09/04/25 03:22
09/04/25 03:22
PT 16.8 Sec (11.4-14.6) H 08/31/25 12:17
INR 1.35 08/31/25 12:17
APTT 33.2 Sec (23.4-35.0) 08/31/25 12:17
Magnesium 2.2 mg/dl (1.6-2.3) 09/04/25 03:22
Physical Exam
Constitutional: No acute distress and Comfortable
EENT: Anicteric and Moist mucous membranes
Cardiovascular: Rhythm & rate is regular and Pedal edema is absent
Respiratory: Respiratory effort normal and Lungs clear to auscul.
GI: Soft and Normal bowel sounds
Other: Skin
Data Reviewed
-
Date of Service: September 04, 2025
Medical Decision Making: Reviewed Test Results, Test Interpretation and Review of Case with other Provider
EKG: Tracing Personally Visualized and interpreted
Echo: Report Reviewed by me
Labs: Labs Reviewed by me
Old Records: Reviewed
Critical Care Time (in minutes): 32
--- NOTE | 2025-09-04 12:26 | PTCARENOTE ---
Amio gtt discontinued. 1u PRBC transfused, no signs of transfusion reaction, vital signs noted, afebrile (97.9 F). Ambulating frequently in halls and room. Worked with cardiac rehab and utilized the stairs, well tolerated, denies dizziness. Ultram
PRN given for moderate back pain, not a new pain for this patient.
[2025-09-04] MEDS: SENOKOT 8.6 MG PO (13:18)
--- NOTE | 2025-09-04 17:24 | PTCARENOTE ---
Patient OOB in chair for dinner. Ambulating frequently in hallways and stairwell with RN supervision. Well tolerated. Blood pressure remains hypotensive, AUTOMOBILE UPHOLSTERER APPRENTICE aware, patient asymptomatic. RIJ cordis discontinued. PIV intact as needed. Vital signs
otherwise stable.
--- NOTE | 2025-09-04 20:00 | PTCARENOTE ---
Resumed care of the patient at 1900. AOx3, OOB in the chair, spouse at bedside. SR w/ 1st degree AVB, PACs, rates 70-80's, pressures low, heart tones audible, pulses weakly palpable, trace LE edema. On RA 96%, weak infrequent cough, IS encouraged,
lungs dim at the bases. BM today per patient, abd SNT, normoactive BS; voiding spontaneously into the toilet without difficulty. All surgical sites stable and intact, MELQUIADES, TTP. PIVx1 RAC INT. Calcium gluconate administered per order. Updated on POC,
call kramer within reach, assessment of needs ongoing.
[2025-09-04] MEDS: CRESTOR 20 MG PO (21:09)
[2025-09-04] MEDS: LEXAPRO 10 MG PO (21:09)
--- NOTE | 2025-09-04 23:00 | PTCARENOTE ---
report received from previous RN, walking rounds done. pt in bed, sleeping. VSS. SR w 1st degree AVB, PACs on monitor, HR 70s. +peripheral pulses, trace LE edema noted. B/L breath sounds present, POX 96% on room air. IS encouraged. +BS. pt voids
spontaneously. all surgical sites stable. PIV x1 intact and patent. see worklist for full assessment, VS, and interventions.
[2025-09-05] VITALS (15 sets, daily range): BP systolic 75–108; BP diastolic 48–69; BMI 27.1
[2025-09-05] MEDS: ULTRAM 50 MG PO ×2 (02:42→21:53)
--- NOTE | 2025-09-05 03:00 | PTCARENOTE ---
no changes in assessment, VSS. SR 70s. POX 96% on room air. AM labs drawn and sent. weight obtained. pt resting between care.
[2025-09-05 03:14] LABS: Hematocrit 29.6 % (37.0-47.0); Hemoglobin 9.9 g/dL (12.0-16.0); Mean Corp Hgb Conc. 33.4 g/dL (33.0-37.0); Mean Corpuscular Volume 80.4 fL (81.0-99.0); Platelet Count 223 10^3/uL (130-400); Red Cell Dist. Width 15.8 % (11.5-14.5)
[2025-09-05 03:27] LABS: Blood Urea Nitrogen 13 mg/dl (7-17); Calcium 9.4 mg/dl (8.4-10.2); Carbon Dioxide 29 mmol/L (22-30); Chloride 103 mmol/L (98-107); Estimated Creatinine Clearance 67 ml/min; Glucose 91 mg/dl (70-99); Magnesium 2.0 mg/dl (1.6-2.3); Potassium 4.1 mmol/L (3.5-5.1); Sodium 136 mmol/L (135-145); eGFR > 60.00
--- NOTE | 2025-09-05 03:45 | W.PN.CT ---
Today's Communication / Plan
-
Plan:
-No major issues overnight. Hemodynamically and neurologically intact
-Off all drips, completed course of Amiodarone gtt yesterday 09/04
-No further a-fib since the 1hr on 09/03/25
-BP has been soft postop, currently on Midodrine. BB is on hold
-Will replete ca++ to help augment BP
-Noted to have b/l pleural effusion but deemed too small for thoracentesis per IR. F/U 2-view cxr today
-Will diurese as BP permits
-Repeat echo 09/03 showed a well seated MV repair with MG 4 mmHg, no MR, LVEF 53%
-Cont. current meds (ASA, Crestor, Amio, Midodrine 5 tid, Lexapro, Mg, Protonix). Holding BB d/t low B
-Temporary PW cut yesterday 09/04 without incident
-Hyponatremia has resolved, 133-> 136. Gentle diureses as BP permits, fluid restriction
-Received 1u PRBC, h/h 9.9/29.6, up from 8.1/24.4. Feels more energetic following transfusion
-Encourage use of IS
-OOB into chair/Ambulate
-Home in 1-2 days
Assessment / Plan
-
- Severe symptomatic MR - s/p Right mini thoracotomy; Radical mitral valve repair; Left atrial appendage ligation, 35mm clip by Dr. Sanchez on 08/31/25, pod #5
- Intraop CALLY: LVEF preop was 60% with no significant regional wall motion abnormalities. She did have dilated left ventricle dimensions in systole and diastole and severe mitral valve insufficiency with a complex jet that had both an anterior as
well as a central and posterior component. Following surgery, EF remained the same at 60% and low but hyperdynamic. Coming off cardiopulmonary bypass the second time, there was no residual mitral valve insufficiency and the mean gradient was 3
across the valve once the patient was no longer hyperdynamic. Ultimately, there was no residual mitral valve deficiency and no systolic anterior motion of the leaflets after repair. Left atrial appendage was verified to be free of any thrombus or
debris preoperatively and clipped across the transverse sinus using a 35mm device which was later found to be totally occlusive flush to the base.
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
- Severe mitral valve insufficiency, symptomatic
- Dilated left ventricle both in systole and diastole
- Multiple orthopedic issues
- Hyperlipidemia
- R reanal cyst
- Rotator cuff repair 14 yrs ago
- Endometrial polyp excision
- Benign tumor excision on R and L hands
- Hx depression
- Hx herpes
- Former smoker
- Acute postop blood loss anemia - stable, no active bleed, s/p 1 pRBC on 09/02 for Hg 7.8
- Acute postop atelectasis
- Acute postop small R PTX-stable
- Acute postop small b/l pleural effusion
- Acute postop hypovolemia (got 1500 ml of LR and 500 Albumin) with subsequent hypervolemia
- Suspected acute postop pericarditis/+ rub
- Acute postop hyponatremia
- Acute postop a-fib with RVR
Discussed patient care with: Cardiology, Nursing, Respiratory Therapy, Pharmacy and Care Team
Subjective
-
Date of Service: September 05, 2025
Pt c/o mild incisional pain, states feels more energetic following 1u PRBC yesterday. Ambulating halls without lightheadedness/dizziness
Objective Data
-
Lab Results
09/05/25 02:52
09/05/25 02:52
PT 16.8 Sec (11.4-14.6) H 08/31/25 12:17
INR 1.35 08/31/25 12:17
APTT 33.2 Sec (23.4-35.0) 08/31/25 12:17
Vital Signs
Vital Signs
Temp Pulse Resp BP Pulse Ox
98.0 F 72 18 93/59 96
09/05/25 02:54 09/05/25 03:00 09/05/25 02:54 09/05/25 02:54 09/05/25 02:54
CT Intake/Output/Weight
09/04/25 09/04/25 09/05/25
06:59 18:59 06:59
Intake Total 930.4 / 1436.9 820.1 / 1050.1 230 / 1050.1
Output Total 1460 / 3285 250 / 1025 775 / 1025
Balance -529.6 / -1848.1 570.1 / 25.1 -545 / 25.1
SaO2: 96 (RA)
Physical Exam
-
General: Awake, Oriented and AOx3
Cardiovascular: Regular rate & rhythm and No Murmurs
Respiratory: Decreased Breath Sounds (at bases, otherwise clear)
Sternum: Stable
Incision: Clean, Dry, Intact and Dressing Intact
Extremities: Other (+trace edema )
Data Reviewed
-
Lab Results: Results Reviewed
Medications: Active Meds Reviewed
Chest X-Ray: Report Reviewed and Image Reviewed
ECG: Report Reviewed and Image Reviewed
[2025-09-05] MEDS: CALCIUM GLUCONATE 130 MG IV (05:38)
[2025-09-05] MEDS: TYLENOL PO ×3 (05:48→21:58)
[2025-09-05] MEDS: LIDOCAINE 4% PATCH TOPICAL (07:39)
[2025-09-05] MEDS: THERAGRAN 1 TABLET PO (07:40)
[2025-09-05] MEDS: PACERONE 200 MG PO ×3 (07:40→21:53)
[2025-09-05] MEDS: SENOKOT 8.6 MG PO (07:40)
[2025-09-05] MEDS: PROTONIX 40 MG PO (07:41)
[2025-09-05] MEDS: MAGNESIUM OXIDE 400 MG PO ×2 (07:41→21:52)
[2025-09-05] MEDS: LOW STRENGTH ASPIRIN 81 MG PO (07:41)
[2025-09-05] MEDS: LASIX 20 MG IV (08:07)
[2025-09-05] MEDS: NSS IV (11:12)
--- NOTE | 2025-09-05 12:14 | W.PN.CD ---
Today's Communication / Plan
-
- Continue midodrine for hypotension. Okay to continue low-dose metoprolol and amiodarone.
- Amiodarone IV is switched to p.o. now
Impression / Plan
-
55 year old woman with HTN, HLD, severe degenerative mitral valve regurgitation admitted for elective MV repair with Dr. Sanchez.
#Severe, degenerative mitral valve regurgitation
-chronic, progressive symptoms.
-s/p #36 [place]ell Physioflex band annuloplasty (SN [id number]) with 2 sets of [place]-Tung cords to anterior leaflet, quadrangular resection of P2 with 3 [place]-Tung cords to posterior leaflet with Dr. Sanchez (08/31/2025). Also LAAE with #35 AtriClip.
-Relative hypovolemia post op, patient responded to albumin/volume infusion and midodrine. S/p 1U pRBC 09/02 and 09/04/2020
-Likely a component of post-op vasoplegia -statin therapy sometimes is associated with vasoplegia perioperatively. If concern remains, we can hold rosuvastatin for few days before starting once vascular tone is recovered
-off pressors; holding BB due to low blood pressures, cont. midodrine
-beta eduardo once blood pressure normalized
-Transfusing 1 unit of packed RBC today.
-cont. diuresis with product administration and developing R pleural effusion
-Incentive spirometry
-Ambulate
#R Pleural effusion
-IR to evaluate for possible thoracentesis, not large enough to top
-serial x-ray to monitor
- On midodrine. Blood pressure improved.
#Afib
-1 hour episode noted with symptoms on 09/02
-on amio, rate controlled
-echo 09/03 with normal function
-hold off on anticoagulation unless longer episodes noted
-on Metoprolol 12.5 mg BID and Amiodarone 20 0mg TID.
#Anemia, post-op
-suspect dilutional -hemoglobin responded adequately with transfusion on 09/04/2025
-trend with diuresis
-transfuse for Hb goal >7
#Rub on exam
-patient with rub and pleuritic CP c/w pericarditis, no significant ST abnormalities on EKG
-echo without effusion
#HTN
-Chronic, currently relatively hypotensive.
-Metoprolol on hold.
#HLD
-Chronic, stable.
-Continue rosuvastatin 20 mg daily.
TTE 09/02/2025
SUMMARY
1. Low normal left ventricular systolic function. LVEF 53%.
2. S/p mitral valve repair with mean gradient 4 mmHg. No mitral regurgitation.
3. No evidence of pericardial effusion.
4. Normal pulmonary artery systolic pressure.
5. Since prior transthoracic echocardiogram, there has been interval mitral valve repair.
Physical Exam
Vital Signs/Labs
Vital Signs
Temp Pulse Resp BP Pulse Ox
98.0 F 78 16 98/61 98
09/05/25 11:24 09/05/25 09:00 09/05/25 11:24 09/05/25 08:39 09/05/25 11:24
09/04/25 09/05/25 09/06/25
06:59 06:59 06:59
Actual Weight 75.8 kg 76 kg
09/05/25 02:52
09/05/25 02:52
PT 16.8 Sec (11.4-14.6) H 08/31/25 12:17
INR 1.35 08/31/25 12:17
APTT 33.2 Sec (23.4-35.0) 08/31/25 12:17
Magnesium 2.0 mg/dl (1.6-2.3) 09/05/25 02:52
Physical Exam
Constitutional: No acute distress and Comfortable
EENT: Anicteric and Moist mucous membranes
Cardiovascular: Rhythm & rate is regular, Pedal edema is absent and JVD pressure is normal
Respiratory: Respiratory effort normal and Lungs clear to auscul.
GI: Normal bowel sounds
Neuro/Psych: Alert and Oriented
Other: Skin
Data Reviewed
-
Date of Service: September 05, 2025
Medical Decision Making: Reviewed Test Results, Test Interpretation and Review of Case with other Provider
EKG: Tracing Personally Visualized and interpreted
Echo: Report Reviewed by me
Labs: Labs Reviewed by me
Old Records: Reviewed
[2025-09-05] MEDS: TYLENOL 975 MG PO (13:33)
[2025-09-05] MEDS: KCL 40 MEQ PO (14:16)
[2025-09-05] MEDS: LASIX 40 MG IV (14:16)
--- NOTE | 2025-09-05 15:14 | PTCARENOTE ---
Received pt from previous RN; Pt AAAx3 and resting comfortably in bed; NSR on monitor and VSS; Lungs diminished; IS 1000; positive bowel sounds; pt voiding yellow urine; palpable pulses throughout; trace generalized edema noted; all surgical sites
C/D/I; pt ambulating room/hallways with RN.
--- NOTE | 2025-09-05 15:17 | PTCARENOTE ---
Pt received in be @ 0700. Assisted to chair with minimal assistance. Pt stating pain is at manageable level with scheduled Tylenol. SaO2 96% on room air. Crackles auscultated at bases. Sinus rhythm with 1st degree AV block and occasional PVC's on
monitor technician. Trace pitting LE edema. Pedal pulses palpable. MAP remains > 65. Scheduled Midodrine administered. Pt able to ambulate without drop in BP. 4 laps in hallway and walked stairs to 3rd floor and back. Lasix 20mg IV given in morning.
Additional dose of Lasix 40mg IV with KcL 40meq PO given now.
[2025-09-05 17:42] LABS: Blood Urea Nitrogen 14 mg/dl (7-17); Calcium 9.1 mg/dl (8.4-10.2); Carbon Dioxide 31 mmol/L (22-30); Chloride 99 mmol/L (98-107); Estimated Creatinine Clearance 60 ml/min; Glucose 82 mg/dl (70-99); Magnesium 1.9 mg/dl (1.6-2.3); Potassium 4.0 mmol/L (3.5-5.1); Sodium 135 mmol/L (135-145); eGFR > 60.00
[2025-09-05] MEDS: MYLICON 80 MG PO (18:15)
--- NOTE | 2025-09-05 20:47 | PTCARENOTE ---
received pt from previous rn. PT AAOx4. VSS. NSR w/ 1st degree AVB. HR 70s. +pulses. trace b/l LE edema. pox 96% on RA. Lungs diminished at bases. occasional non productive cough noted. +bs. pt voiding in bathroom spontaneously. all surgical
incisions intact. PIV x1 intact. plan of care discussed and questions encouraged. call kramer within reach. see worklist for full nursing assessment and nursing interventions.
[2025-09-05] MEDS: CRESTOR PO ×2 (21:52→21:59)
[2025-09-05] MEDS: KCL 20 MEQ PO (21:52)
[2025-09-05] MEDS: SENOKOT PO (21:52)
[2025-09-05] MEDS: LEXAPRO 10 MG PO (21:53)
--- NOTE | 2025-09-06 00:03 | PTCARENOTE ---
pt reassessed. VSS. pt c/o incision pain. See NOV. NSR per tele monitor HR 70s. pox 95% on RA. pt assisted into shower. shower completed w/o issues. otherwise assessment unchanged
[2025-09-06 03:13] VITALS: BP 96/65
[2025-09-06 04:01] LABS: Blood Urea Nitrogen 17 mg/dl (7-17); Calcium 8.9 mg/dl (8.4-10.2); Carbon Dioxide 30 mmol/L (22-30); Chloride 101 mmol/L (98-107); Estimated Creatinine Clearance 60 ml/min; Glucose 86 mg/dl (70-99); Magnesium 1.9 mg/dl (1.6-2.3); Potassium 4.0 mmol/L (3.5-5.1); Sodium 137 mmol/L (135-145); eGFR > 60.00
[2025-09-06 04:07] LABS: Hematocrit 30.5 % (37.0-47.0); Hemoglobin 10.3 g/dL (12.0-16.0); Mean Corp Hgb Conc. 33.8 g/dL (33.0-37.0); Mean Corpuscular Volume 78.4 fL (81.0-99.0); Platelet Count 281 10^3/uL (130-400); Red Cell Dist. Width 15.9 % (11.5-14.5)
--- NOTE | 2025-09-06 04:10 | W.PN.CT ---
Today's Communication / Plan
-
Plan:
-No major issues overnight. Hemodynamically and neurologically intact
-Off all drips, completed course of Amiodarone gtt on 09/04
-No further a-fib since the 1hr on 09/03/25
-BP has been soft postop, currently on Midodrine. BB is on hold
-Will replete ca++ to help augment BP
-Noted to have b/l pleural effusion but deemed too small for thoracentesis per IR. F/U 2-view cxr yesterday 09/05 showed increasing left effusion/atelectasis
-CXR this AM shows bilateral pleural effusion, > on right on my review. F/U official report. Will discuss assessing for Left thoracentesis
-Will diurese as BP permits
-Repeat echo on 09/03 showed a well seated MV repair with MG 4 mmHg, no MR, LVEF 53%
-Cont. current meds (ASA, Crestor, Amio, Midodrine 5 tid, Lexapro, Mg, Protonix). Holding BB d/t low B
-Temporary PW cut 09/04 without incident
-Hyponatremia has resolved, 133-> 136 -> 137. Gentle diureses as BP permits, fluid restriction
-Received 1u PRBC on 09/04, h/h 10.3/30.5 today, up from 8.1/24.4. Feels more energetic following transfusion
-Encourage use of IS
-OOB into chair/Ambulate
-Home in later today vs tomorrow
Assessment / Plan
-
- Severe symptomatic MR - s/p Right mini thoracotomy; Radical mitral valve repair; Left atrial appendage ligation, 35mm clip by Dr. Sanchez on 08/31/25, pod #6
- Intraop CALLY: LVEF preop was 60% with no significant regional wall motion abnormalities. She did have dilated left ventricle dimensions in systole and diastole and severe mitral valve insufficiency with a complex jet that had both an anterior as
well as a central and posterior component. Following surgery, EF remained the same at 60% and low but hyperdynamic. Coming off cardiopulmonary bypass the second time, there was no residual mitral valve insufficiency and the mean gradient was 3
across the valve once the patient was no longer hyperdynamic. Ultimately, there was no residual mitral valve deficiency and no systolic anterior motion of the leaflets after repair. Left atrial appendage was verified to be free of any thrombus or
debris preoperatively and clipped across the transverse sinus using a 35mm device which was later found to be totally occlusive flush to the base.
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
- Severe mitral valve insufficiency, symptomatic
- Dilated left ventricle both in systole and diastole
- Multiple orthopedic issues
- Hyperlipidemia
- R reanal cyst
- Rotator cuff repair 14 yrs ago
- Endometrial polyp excision
- Benign tumor excision on R and L hands
- Hx depression
- Hx herpes
- Former smoker
- Acute postop blood loss anemia - stable, no active bleed, s/p 1 pRBC on 09/02 for Hg 7.8
- Acute postop atelectasis
- Acute postop small R PTX-stable
- Acute postop small b/l pleural effusion
- Acute postop hypovolemia (got 1500 ml of LR and 500 Albumin) with subsequent hypervolemia
- Suspected acute postop pericarditis/+ rub
- Acute postop hyponatremia
- Acute postop a-fib with RVR
Discussed patient care with: Cardiology, Nursing, Respiratory Therapy, Pharmacy and Care Team
Subjective
-
Date of Service: September 06, 2025
Pt c/o mild incisional pain, otherwise feels well. Ambulating halls without difficulty
Objective Data
-
Lab Results
09/06/25 03:20
09/06/25 03:20
PT 16.8 Sec (11.4-14.6) H 08/31/25 12:17
INR 1.35 08/31/25 12:17
APTT 33.2 Sec (23.4-35.0) 08/31/25 12:17
Vital Signs
Vital Signs
Temp Pulse Resp BP Pulse Ox
98 F 77 14 100/63 95
09/06/25 00:00 09/06/25 00:00 09/06/25 00:00 09/05/25 22:08 09/06/25 00:00
CT Intake/Output/Weight
09/05/25 09/05/25 09/06/25
06:59 18:59 06:59
Intake Total 230 / 1050.1 240 / 240
Output Total 775 / 1025 2300 / 2550 250 / 2550
Balance -545 / 25.1 -2060 / -2310 -250 / -2310
SaO2: 95 (RA)
Physical Exam
-
General: Awake, Oriented and AOx3
Cardiovascular: Regular rate & rhythm, No Murmurs, No Rub and No Gallop
Respiratory: Decreased Breath Sounds (at bases)
Sternum: Stable
Incision: Clean, Dry, Intact and Dressing Intact
Extremities: Other (+trace edema)
Data Reviewed
-
Lab Results: Results Reviewed
Medications: Active Meds Reviewed
Chest X-Ray: Report Reviewed and Image Reviewed
ECG: Report Reviewed and Image Reviewed
--- NOTE | 2025-09-06 04:34 | PTCARENOTE ---
Pt reassessed. Pt ambulating in room. VSS. NSR per tele monitor HR 70s. AM labs sent. assessment remains unchanged.
[2025-09-06 04:35] VITALS: BMI 26.5
[2025-09-06] MEDS: TYLENOL 975 MG PO (06:14)
[2025-09-06 07:12] VITALS: BP 106/74
[2025-09-06] MEDS: LIDOCAINE 4% PATCH TOPICAL (07:38)
--- NOTE | 2025-09-06 08:07 | PTCARENOTE ---
Patient received from cage shift manager resting oob in chair, AAO x 3, states pain controlled at this time. NSR via cm, SaO2 @ 96% on RA. All procedural sites stable. Dr. Sanchez and CT team to bedside, patient and spouse updated to status including possible
d/c today. See work list for full assessment and interventions performed.
--- NOTE | 2025-09-06 08:14 | W.PN.CD ---
Today's Communication / Plan
-
stable for discharge
discharge with low dose PO lasix and daily weight
hold metop given hypotension requiring midodrine, resume as outpatient when tolerated
no AC given minimal Afib, patient knows to call if concern for further episodes
eval pleural effusion with CXR in 1 week
Impression / Plan
-
55 year old woman with HTN, HLD, severe degenerative mitral valve regurgitation admitted for elective MV repair with Dr. Sanchez.
#Severe, degenerative mitral valve regurgitation
-chronic, progressive symptoms.
-s/p #36 [place] Physioflex band annuloplasty (SN [id number]) with 2 sets of [place]-Tung cords to anterior leaflet, quadrangular resection of P2 with 3 [place]-Tung cords to posterior leaflet with Dr. Sanchez (08/31/2025). Also LAAE with #35 AtriClip.
-Likely a component of post-op vasoplegia and anemia, improvement s/p pRBCs
-off pressors; holding BB due to low blood pressures, cont. midodrine
-beta eduardo once blood pressure normalized (as outpatient)
-cont. diuresis with product administration and developing R pleural effusion, recommend discharge with low dose oral diuretic
#R Pleural effusion
-IR to evaluated for possible thoracentesis, not large enough to top
-serial x-ray to monitor, next in 1 week as outpatient
#Afib
-1 hour episode noted with symptoms on 09/02
-on amio, rate controlled
-echo 09/03 with normal function
-hold off on anticoagulation unless longer episodes noted
-beta eduardo as outpatient once tolerated by BP
#Anemia, post-op
-suspect dilutional -hemoglobin responded adequately with transfusion on 09/04/2025
#Rub on exam
-patient with rub and pleuritic CP c/w pericarditis, no significant ST abnormalities on EKG
-echo without effusion
#HTN
-Chronic, currently relatively hypotensive.
-Metoprolol on hold.
#HLD
-Chronic, stable.
-Continue rosuvastatin 20 mg daily.
TTE 09/02/2025
SUMMARY
1. Low normal left ventricular systolic function. LVEF 53%.
2. S/p mitral valve repair with mean gradient 4 mmHg. No mitral regurgitation.
3. No evidence of pericardial effusion.
4. Normal pulmonary artery systolic pressure.
5. Since prior transthoracic echocardiogram, there has been interval mitral valve repair.
Physical Exam
Vital Signs/Labs
Vital Signs
Temp Pulse Resp BP Pulse Ox
36.4 C 71 17 106/74 96
09/06/25 07:30 09/06/25 08:02 09/06/25 07:30 09/06/25 07:12 09/06/25 07:59
09/05/25 09/06/25 09/07/25
06:59 06:59 06:59
Actual Weight 76 kg 74.3 kg
09/06/25 03:20
09/06/25 03:20
PT 16.8 Sec (11.4-14.6) H 08/31/25 12:17
INR 1.35 08/31/25 12:17
APTT 33.2 Sec (23.4-35.0) 08/31/25 12:17
Magnesium 1.9 mg/dl (1.6-2.3) 09/06/25 03:20
Physical Exam
Constitutional: Comfortable
Cardiovascular: Rhythm & rate is regular
Respiratory: Respiratory effort normal
Neuro/Psych: AO x 3
Data Reviewed
-
Date of Service: September 06, 2025
Medical Decision Making: Reviewed Test Results
EKG: Tracing Personally Visualized and interpreted
X-Ray/CT/US/MRI/NUC/PET: Image Personally Visualized and interpreted
Labs: Labs Reviewed by me
[2025-09-06] MEDS: LOW STRENGTH ASPIRIN 81 MG PO (08:19)
[2025-09-06] MEDS: PROTONIX 40 MG PO (08:19)
[2025-09-06] MEDS: THERAGRAN 1 TABLET PO (08:19)
[2025-09-06] MEDS: PACERONE 200 MG PO (08:19)
[2025-09-06] MEDS: SENOKOT 8.6 MG PO (08:19)
[2025-09-06] MEDS: MAGNESIUM OXIDE 400 MG PO (08:19)
[2025-09-06] MEDS: NSS IV (08:20)
--- NOTE | 2025-09-06 08:47 | W.DCSUMMARY ---
Discharge Summary
Discharge Data
Date of Admission: 08/31/25
Date of Discharge: 09/06/25
-
Pending Results: No
Hospital Course
Primary care physician: Zabrina Evans
Outpatient statistics tutor: Guy Ledezma
Inpatient consultants: [facility] Cardiology, pulmonary dispatch associate
Procedures:
1. mitral valve repair, left atrial appendage clip (08/31/25)
Primary Diagnosis:
1. Myxomatous mitral valve degeneration with prolapse of the posterior leaflet
Secondary Diagnoses:
1. Multiple orthopedic issues
2. Hyperlipidemia
3. R renal cyst
4. Rotator cuff repair 14 yrs ago
5. Endometrial polyp excision
6. Benign tumor excision on R and L hands
7. Hx depression
8. Hx herpes
- Acute postop blood loss anemia - stable, no active bleed, s/p 1 pRBC on 09/02 for Hg 7.8
- Acute postop atelectasis
- Acute postop small R PTX-stable
- Acute postop small b/l pleural effusion
- Acute postop respiratory insufficiency
- Acute postop hypovolemia (got 1500 ml of LR and 500 Albumin) with subsequent hypervolemia
- Suspected acute postop pericarditis/+ rub
- Acute postop hyponatremia
- Acute postop a-fib with RVR
HPI: 55 year old female presents 08/31 25 for elective mitral valve repair due to severe mitral regurgitation with exertional dyspnea, fatigue and palpitations
Hospital course: Patient was taken to the operating room and underwent a radical mitral valve repair (5 sets of [place]-Tung cords with 2 to the anterior leaflet and 3 to the posterior leaflet, quadrangular resection with sliding plasty of the posterior
leaflet at P2 along the medial aspect, free margin remodeling of P1 P2, band annuloplasty with a 36 mm band), and left atrial appendage #35mm clip with Dr. Carmelo Sanchez. For further details, please see operative report. Postprocedure CALLY reported
EF of 55-60%. Patient received no intraoperative blood products and was extubated in the operating room. She returned to the CVICU on Levophed, and insulin. She required temporary BiPAP status post extubation for respiratory insufficiency. Chest
tubes were discontinued on postoperative day 1 and Levophed discontinued midodrine was initiated to support blood pressure. On postoperative day #2, patient was transfused 1 unit of PRBC for hemoglobin 7.8. Aranda was discontinued. Patient was
diuresed with Lasix 40 mg IV. On postoperative day #3, an ultrasound was completed to evaluate for thoracentesis and there was not enough fluid to warrant the procedure. Patient did convert to atrial fibrillation for approximately 1 hour and
rhythm converted to sinus rhythm with amiodarone bolus and infusion. Repeat TTE reported an EF of 53% with mitral valve mean gradient of 3 mmHg and mild mitral regurgitation. Postoperative infarct, blood pressure remained low and beta-eduardo was
held. Patient felt fatigued and hemoglobin was 8.1, therefore patient received 1 PRBC transfusion. Temporary ventricular wires were cut and right IJ removed. Gabapentin was discontinued and midodrine increased to 10 mg 3 times daily for continued
soft systolic blood pressures in the 80s. Patient diuresed with 40 mg IV Lasix x 2 with resultant 2.3 L urine output. On postoperative day #6, small left pleural effusion was noted. Patient without any significant left pleural effusion and will
obtain a chest x-ray in 1 week. No beta-eduardo was ordered on discharge due to low normal blood pressure. Patient will continue on midodrine 10 mg 3 times daily. Amiodarone will continue on discharge twice daily for 14 days and then decrease to
200 mg daily labs on day of discharge: WBC 9, hemoglobin 10.3, platelets 281 K, sodium 137, potassium 4.0, creatinine 1.0. Patient instructed to hold Zepbound until she is seen in postoperative clinic.
Home medication changes:
Hold Zepbound until seen in post-op clinic
Discharge Plan
-
Patient Disposition: Home (Routine Discharge)
Discharge Diagnosis/Procedures: mitral valve repair; Left atrial appendage clip (08/31/25)
Condition: Good
Diet: 2 Gram Sodium
Activity: No strenuous activity
Driving Restrictions: No driving for 2 weeks
Bathing Restrictions: OK to Shower
Others Tests: CXR in 1 week
Other Services: Cardiac Rehab
Specialty Instructions: Weigh Daily- Call MD for wt gain/loss 3 lbs overnight/5 lbs in 1 week
Referrals:
CT Transitional Care Nurse [Outside]
Referral Note: The Cardiothoracic Transitional Care Nurse will call you to set up a visit in 1-2 days.
[facility] [Outside]
Referral Note: Cardiac Rehab Orientation appointment and� First Exercise appointment is on 10/12/25 at 10:00.
The Cardiac Rehab gym is located on the first floor of the [facility].
Zabrina Evans MD [Family Provider, Internal Medicine]
Guy Ledezma MD [Active, Cardiology] - 10/14/25 10:40 am
Carmelo Sanchez MD [Active, Cardiac Surgery] - 10/04/25 2:00 pm
Prescriptions:
New
aspirin 81 mg Tablet,Chewable
81 mg PO DAILY Qty: 0 0RF
acetaminophen 325 mg Tablet
650 mg PO Q4HPRN PRN (Reason: mild pain,headache,temp >101F ) Qty: 0 0RF
tramadol 50 mg Tablet
50 mg PO Q6HPRN PRN (Reason: severe pain) Qty: 10 0RF
midodrine 5 mg Tablet
10 mg PO TID@0500,1300,1800 Qty: 90 0RF
amiodarone 200 mg tablet
200 mg PO BID Qty: 60 2RF
Rx Instructions:
200mg BID x 14 days, then 200mg daily
cyclobenzaprine 10 mg Tablet
5 mg PO Q8HPRN PRN (Reason: muscle spasm) Qty: 10 0RF
furosemide [Lasix] 20 mg tablet
20 mg PO DAILY Qty: 30 0RF
Continued
escitalopram oxalate 10 mg Tablet
10 mg PO HS
rosuvastatin 20 mg Tablet
20 mg PO HS
multivitamin Tablet
1 tab PO DAILY
Held
Zepbound 7.5 mg/0.5 mL Pen Injector
7.5 mg SC QWEEK
Hold Instructions: Resume on 10/08/25. hold until seen by Dr. Sanchez in office post-op
Rx Instructions:
Takes on Saturday
Discontinued
metoprolol succinate 25 mg Tablet Extended Release 24 Hr
25 mg PO HS
Discharge Orders:
Discharge Patient (As Directed); Ordered 09/06/25
Ordered By: Rebeca Toney
Care Plan Goals
Care Plan Goals:
Problem: Readiness for enhanced knowledge related to diagnosis and treatment plan
Goal: Understand your diagnosis and treatment plan needs, including medications if applicable.
Instructions: Know your diagnosis, underlying causes and treatment plan options, including medications if applicable. Consult with your health care team to learn about your diagnosis and treatment plan, including medications if applicable.
Discharge Date and Time
Discharge Date/Time: 09/06/25 10:47
Print Language: [place] K[place]
[2025-09-06 09:46] VITALS: BP 94/64
--- NOTE | 2025-09-06 10:30 | PTCARENOTE ---
Discharge instructions thoroughly reviewed w/patient and spouse, all questions answered. Follow up cardiology visit clarified w/ALVARO Hurley. PIV removed, patient dressed independently. Patient and all belongings transported to waiting vehicle for
d/c home.
== END 2025-09-06 10:47 | disposition home or self-care (01) | DRG 220 ==
LOC: CVICU 04:53
PROVIDERS: Anesthesiology; Clinical Nurse Specialist Acute Care; Nurse Practitioner; Physician Assistant Medical; ADMITTING PHYSICIAN Thoracic Surgery (Cardiothoracic Vascular Surgery); CONSULT PHYSICIAN Internal Medicine; FAMILY PHYSICIAN Internal Medicine; OTHER PHYSICIAN Student in an Organized Health Care Education/Training Program
PROC: 5A09357 Assistance with Respiratory Ventilation, Less than 24 Consecutive Hours, Continuous Positive Airway Pressure (ICD-10-PCS; 2025-08-31)
PROC: 02L70CK Occlusion of Left Atrial Appendage with Extraluminal Device, Open Approach (ICD-10-PCS; 2025-08-31)
PROC: 02UG0JZ Supplement Mitral Valve with Synthetic Substitute, Open Approach (ICD-10-PCS; 2025-08-31)
PROC: B24BZZ4 Ultrasonography of Heart with Aorta, Transesophageal (ICD-10-PCS; 2025-08-31)
PROC: 30233N1 Transfusion of Nonautologous Red Blood Cells into Peripheral Vein, Percutaneous Approach (ICD-10-PCS; 2025-09-02)
DX: I34.0 Nonrheumatic mitral (valve) insufficiency (principal); D62 Acute posthemorrhagic anemia; J98.11 Atelectasis; J90 Pleural effusion, not elsewhere classified; E87.1 Hypo-osmolality and hyponatremia; I30.8 Other forms of acute pericarditis; J95.811 Postprocedural pneumothorax; I34.1 Nonrheumatic mitral (valve) prolapse; E78.00 Pure hypercholesterolemia, unspecified; I10 Essential (primary) hypertension; R06.89 Other abnormalities of breathing; E86.1 Hypovolemia; E87.70 Fluid overload, unspecified; I48.91 Unspecified atrial fibrillation; Y83.8 Other surgical procedures as the cause of abnormal reaction of the patient, or of later complication, without mention of misadventure at the time of the procedure; I95.81 Postprocedural hypotension
CPT/HCPCS: 36415; 71045; 71046; 76604; 80048; 80053; 81003; 81015; 82248; 82330; 82565; 82805; 82947; 82962; 83036; 83735; 84132; 84302; 84520; 85014; 85018; 85025; 85027; 85049; 85610; 85730; 86850; 86900; 86901; 86920; 87070; 88305; 93005; 93308; 93312; 93320; 93321; 93325; 94660; J0282; J2916; P9016; P9045; P9047

== ENCOUNTER → 2025-09-14 10:41 | Outpatient (REF) | payer BC, SELFPAY | LOC: RAD 10:41 | PROVIDERS: ATTENDING PHYSICIAN Thoracic Surgery (Cardiothoracic Vascular Surgery); FAMILY PHYSICIAN Internal Medicine | DX: J90 Pleural effusion, not elsewhere classified (principal) | CPT/HCPCS: 71046 ==

== ENCOUNTER 2025-09-21 13:04 | Emergency (ER) | payer BC, SELFPAY ==
[2025-09-21 13:05] VITALS: BP 108/70
[2025-09-21 13:25] VITALS: BP 109/68
--- NOTE | 2025-09-21 13:48 | ED.GENMED ---
History of Present Illness
General
Chief Complaint: Dizziness
Time Seen by Provider: 09/21/25 13:23
History of Present Illness
History of Present Illness:
55-year-old female with history of low blood pressure and status post mitral valve replacement on 08/31 presenting to the emergency department for lightheadedness and a shaking episode today. Patient notes in her postoperative period, Blood
pressures have been running low so she was placed on midodrine at 10 mg 3 times daily. She saw her primary care doctor last evening who increased the midodrine to 3 times a day. This afternoon had an episode of shaking. In discussion with her
primary care doctor, was advised to come to the hospital to rule out any infectious component, as well as a developing blood clot. Denies any fever. Denies any significant dyspnea. Has had some mild shortness of breath in the postoperative
period. Denies any chest pain. Denies any issues with her incisions. Denies additional acute medical complaints
Past History
Past History
ED Past Medical History: Hypercholesterolemia and Other (Problem with her Mitral valve)
ED Past Surgical History: None
Social History
Tobacco: Former smoker
Alcohol: Occasional
Personal:
Living: with family
Phy Exam
Physical Exam
Physical Exam:
General: Well-appearing, no clinical signs of dehydration, nontoxic and in no acute distress
HEENT: protecting airway
Neck: appears supple
CV: Normal heart rate, regular rhythm. Normal-appearing incision at the right breast region, healing without erythema or drainage
Resp: No accessory muscle use, no increased work of breathing, lungs clear to auscultation bilaterally
Abd: Soft and non-distended, no tenderness to palpation
Extremities: No deformities, no swelling, no erythema. Normal appearing incision to the right groin, without erythema or drainage
Neuro: alert, no focal neurologic deficit
: deferred
Rectal: deferred
Psych: Normal affect
Skin: Intact
Course
Orders/Labs/Results
Orders:
Orders
09/21/25 13:38
CT Chest PE Study Urgent
Comment:
Reason For Exam: sob, r/o PE
09/21/25 13:41
Electrocardiogram (*1) Urgent
Reason for Study: Vertigo / Dizzy
EKG- Treatment ONCE
09/21/25 13:43
Complete Blood Count/With Diff Urgent
Comprehensive Metabolic Panel Urgent
NT-proBNP Urgent
PTT Urgent
Prothrombin Time Urgent
Blood Culture Q30M
KIMO Source: Blood/Venous
Specimen Description:
Blood Culture Q30M
KIMO Source: Blood/Venous
Specimen Description:
09/21/25 13:51
Potassium Chloride [KCl] 40 meq PO NOW STA
Potassium Chloride [KCl] 40 meq 0.9% Sodium Chloride 250 ml [Nss] 250 ml IV NOW
09/21/25 14:23
Urinalysis Reflex To Culture Urgent
Date Specimen was Collected: 09/21/25
Time Specimen was Collected: 14:03
Abnormal Lab Results
09/21/25
13:43
Hgb 11.6 L g/dL
(12.0-16.0)
Hct 35.9 L %
(37.0-47.0)
MCH 26.3 L pg
(27.0-31.0)
MCHC 32.3 L g/dL
(33.0-37.0)
RDW 16.7 H %
(11.5-14.5)
Plt Count 405 H 10^3/uL
(130-400)
Lymphocytes % 18.2 L %
(20.5-51.1)
BUN 20 H mg/dl
(7-17)
Creatinine 1.2 H mg/dL
(0.6-1.0)
AST 45 H U/L
(14-36)
ALT 53 H U/L
(0-35)
09/21/25 13:43
09/21/25 13:43
Vital Signs
Initial and Last Documented VS:
Initial Vital Signs
Temp Pulse Resp BP Pulse Ox
98.0 F 85 20 108/70 100
09/21/25 13:05 09/21/25 13:05 09/21/25 13:05 09/21/25 13:05 09/21/25 13:05
Last Documented Vital Signs
Temp Pulse Resp BP Pulse Ox
98.0 F 65 20 102/63 97
09/21/25 13:05 09/21/25 14:00 09/21/25 14:00 09/21/25 15:00 09/21/25 15:36
MDM/Problems Addressed
MDM/Problems Addressed:
55-year-old female status post mitral valve repair on 08/31 presenting for lightheadedness and episode of shaking prior to arrival. Vital signs on arrival are normal
On exam patient is resting comfortably, no acute distress. She is afebrile, nontoxic. Regarding shaking episode this afternoon, suspect less likely to be a fever. No antipyretics prior to arrival, currently afebrile, again nontoxic. Primary care
doctor requesting a blood culture. Suspect low utility at this time, however will obtain for follow-up reasons. CT surgery aware of patient's arrival, will CT imaging of the chest. Will obtain to ensure no postoperative fluid collections. Lower
suspicion for pulmonary embolism at this time without any significant dyspnea or tachycardia. Will also screen with laboratory analysis, urinalysis, EKG. Presently hemodynamically stable
16:20 - Patient's labs are unremarkable. Urine without sign of infection. CT of the chest without significant pathology, mild pleural effusions. Feel stable for discharge. In discussion with cardiothoracic surgery, will stop her amiodarone.
Advised continue oral hydration and use of her midodrine. However at this time again no concern for infection or cardiac compromise. Return precautions discussed and patient verbalized understanding
*Pulse Oximetry
SaO2: 100
Oxygen Mode of Delivery: Room air
Patient hypoxic: no
*Critical Care Note
Total Time (30-74mins, 75-104mins- exclusive of procedures): Not Applicable
ED Attending Note
-
Portions of this chart may have been created with voice recognition software.� Occasional wrong word or��sound alike� substitutions may have occurred due to the inherent limitations of voice recognition software.
Discharge Plan
Departure
Prescriptions:
No Action
Zepbound 7.5 mg/0.5 mL Pen Injector
7.5 mg SC QWEEK
Rx Instructions:
Takes on Saturday
escitalopram oxalate 10 mg Tablet
10 mg PO HS
rosuvastatin 20 mg Tablet
20 mg PO HS
multivitamin Tablet
1 tab PO DAILY
aspirin 81 mg Tablet,Chewable
81 mg PO DAILY Qty: 0 0RF
acetaminophen 325 mg Tablet
650 mg PO Q4HPRN PRN (Reason: mild pain,headache,temp >101F ) Qty: 0 0RF
tramadol 50 mg Tablet
50 mg PO Q6HPRN PRN (Reason: severe pain) Qty: 10 0RF
midodrine 5 mg Tablet
10 mg PO TID@0500,1300,1800 Qty: 90 0RF
amiodarone 200 mg tablet
200 mg PO BID Qty: 60 2RF
Rx Instructions:
200mg BID x 14 days, then 200mg daily
cyclobenzaprine 10 mg Tablet
5 mg PO Q8HPRN PRN (Reason: muscle spasm) Qty: 10 0RF
furosemide [Lasix] 20 mg tablet
20 mg PO DAILY Qty: 30 0RF
Referrals:
Zabrina Evasn MD [Family Provider, Internal Medicine]
Interventions
Interventions:
*General Assessment Last Done: 09/21/25 13:05
*Neglect/Abuse Screening Last Done: 09/21/25 13:05
*ED COVID-19 Vaccine History Last Done: 09/21/25 14:06
*ED Influenza Vaccine History Last Done: 09/21/25 14:06
[facility] Fall Risk Assessment Tool Last Done: 09/21/25 14:04
*Risk Screen - Suicide (C-SSRS) Last Done: 09/21/25 14:06
ED- Neurological Assessment Last Done: 09/21/25 14:05
ED Swallowing Screen Last Done: 09/21/25 14:05
Discharge Date and Time
Print Language: RUSSI[place]
[2025-09-21 13:58] LABS: Hematocrit 35.9 % (37.0-47.0); Hemoglobin 11.6 g/dL (12.0-16.0); Mean Corp Hgb Conc. 32.3 g/dL (33.0-37.0); Mean Corpuscular Volume 81.4 fL (81.0-99.0); Nucleated Red Blood Cells % 0 %; Platelet Count 405 10^3/uL (130-400); Red Cell Dist. Width 16.7 % (11.5-14.5)
[2025-09-21 14:00] VITALS: BP 100/57
[2025-09-21 14:14] LABS: ALT (SGPT) 53 U/L (0-35); AST (SGOT) 45 U/L (14-36); Albumin 4.7 g/dl (3.5-5.0); Alkaline Phosphatase 83 U/L (38-126); Blood Urea Nitrogen 20 mg/dl (7-17); Calcium 9.6 mg/dl (8.4-10.2); Carbon Dioxide 26 mmol/L (22-30); Chloride 101 mmol/L (98-107); Glucose 76 mg/dl (70-99); Potassium 4.6 mmol/L (3.5-5.1); Sodium 137 mmol/L (135-145); Total Protein 7.6 g/dl (6.3-8.2); eGFR 53.79
[2025-09-21 14:16] LABS: INR 1.08; PT 14.1 Sec (11.4-14.6)
[2025-09-21 14:17] LABS: APTT 29.6 Sec (23.4-35.0)
[2025-09-21 14:43] LABS: Urine Character Clear (Clear)
[2025-09-21 15:00] VITALS: BP 102/63
== END 2025-09-21 16:41 | disposition home or self-care (01) ==
LOC: EMR 13:04
PROVIDERS: EMERGENCY PHYSICIAN Student in an Organized Health Care Education/Training Program; FAMILY PHYSICIAN Internal Medicine
DX: I95.9 Hypotension, unspecified (principal); J90 Pleural effusion, not elsewhere classified; E78.00 Pure hypercholesterolemia, unspecified; Z79.82 Long term (current) use of aspirin; Z95.2 Presence of prosthetic heart valve; Z87.891 Personal history of nicotine dependence
CPT/HCPCS: 99284; 71275; 80053; 81003; 83880; 85025; 85610; 85730; 87040; 93005; Q9967

== ENCOUNTER → 2025-09-28 11:08 | Outpatient (REF) | payer BC, SELFPAY | LOC: HWRCS 11:08 | PROVIDERS: ATTENDING PHYSICIAN Internal Medicine Cardiovascular Disease; FAMILY PHYSICIAN Internal Medicine | DX: I34.0 Nonrheumatic mitral (valve) insufficiency (principal); I47.10 Supraventricular tachycardia, unspecified; E78.00 Pure hypercholesterolemia, unspecified; Z98.890 Other specified postprocedural states; I95.89 Other hypotension; I95.1 Orthostatic hypotension; R42 Dizziness and giddiness | CPT/HCPCS: 93306 ==